=== PATIENT | female | born 1985 | race Caucasian/White ===

== ENCOUNTER 2016-07-21 10:02 | Emergency (ER) | payer MEDICAID ==
[2016-07-21] MEDS ORDERED: Nalbuphine 10 MG/1 ML Vial IVPUSH ONE (10:49)
[2016-07-21] MEDS ORDERED: diphenhydrAMINE 50 MG/ML SDV IVPUSH PRN (10:49)
[2016-07-21] MEDS ORDERED: Prochlorperazine 10 MG/2 ML SDV IVPUSH ONE (10:49)
--- NOTE | 2016-07-21 10:56 | EDM.PDOC ---
ED HPI Behavioral Health - General Chief Complaint: Behavioral/Psych Stated Complaint: MENTAL EVEL Time Seen by Provider: 07/21/16 10:40 Source: Reports: Patient, Old records, RN notes reviewed Exam Limitations: Reports: No limitations - History of Present Illness INITIAL COMMENTS - FREE TEXT/NARRATIVE: 30-year-old female presents emergency Department via law enforcement, she states she's been having suicidal thoughts she does have a plan in which she would take a bunch of pills she has been more depressed over the last several days recently had a medication change where Paxil was added to her current regimen since been on this medication for about a week. She also complains of headache she does have a history of migraines this feels slightly different she has taken combination of ibuprofen and Tylenol without significant relief she denies any nausea vomiting phonophobia or photophobia it is not the worst headache of her life - Related Data Allergies Allergy/AdvReac Type Severity Reaction Status Date / Time latex Allergy Hives Verified 05/13/16 20:35 Sulfa (Sulfonamide Allergy Hives Verified 05/13/16 20:35 Antibiotics) amitriptyline AdvReac Disorientat Verified 05/13/16 20:35 ion ketorolac [From Toradol] AdvReac Nausea Verified 05/13/16 20:35 Home Medications: Home Meds Levothyroxine 175 mcg PO DAILY 02/05/13 [History] Venlafaxine [Effexor] 75 mg PO DAILY 08/27/14 [History] Albuterol Sulfate [Proair Hfa] 1 - 2 puff IH ASDIRECTED PRN 03/31/15 [History] hydrOXYzine HCl [hydrOXYzine] 25 mg PO BID PRN 07/10/15 [History] Gabapentin [Gabapentin] 600 mg PO TID 12/23/15 [History] tiZANidine HCl [Tizanidine HCl] 2 mg PO Q8H PRN 12/23/15 [History] ARIPiprazole [Abilify] 15 mg PO DAILY 01/03/16 [History] Ibuprofen 600 mg PO TID 01/03/16 [History] Omeprazole 20 mg PO ACBREAKFAST 01/03/16 [History] Prazosin [Minpress] 2 mg PO BEDTIME 01/03/16 [History] Meloxicam [Meloxicam] 15 mg PO DAILY 02/28/16 [History] busPIRone [Buspar] 10 mg PO BID 05/13/16 [History] FLUoxetine [PROzac] 10 mg PO DAILY 07/21/16 [History] Headache Pain Score (Numeric/FACES): 8 Past Medical History HEENT History: Reports: Impaired vision Cardiovascular History: Reports: Other (see below) Other Cardiovascular History: heart palpitation Respiratory History: Reports: Asthma, Other (see below) Other Respiratory History: exercise induced asthma Gastrointestinal History: Reports: Gastritis Genitourinary History: Reports: Other (see below) Other Genitourinary History: cervical dysplagia STILL CLEANER History: Reports: , Other (see below) Other OB/BYN History: cervical dysplagia Musculoskeletal History: Reports: Back pain, chronic, Fracture, Osteoarthritis, Other (see below) Other Musculoskeletal History: collarbone and fracture lower back in past EDS Neurological History: Reports: Concussion Psychiatric History: Reports: Anxiety, Bipolar, Depression, Mood swings, Psych Hospitalization(s), Suicide attempt, Suicidal ideation Other Psychiatric History: last psych hospital last week. Endocrine/Metabolic History: Reports: Hypothyroidism Hematologic History: Reports: Anemia, B12 deficiency, Blood transfusion(s), Iron deficiency - Infectious Disease History Infectious Disease History: Reports: Chicken pox - Past Surgical History GI Surgical History: Reports: Appendectomy Female Surgical History: Reports: Tubal ligation, Other (see below) Other Female Surgeries/Procedures: painful irregular menses Social & Family History - Tobacco Use Smoking Status *Q: Current Every Day Smoker Years of Tobacco use: 7 Packs/Tins Daily: 0.5 Used Tobacco, but Quit: No Month Tobacco Last Used: december Second Hand Smoke Exposure: Yes - Caffeine Use Caffeine Use: Reports: Coffee - Alcohol Use Days Per Week of Alcohol Use: 0 Number of Drinks Per Day: 5 Total Drinks Per Week: 0 - Recreational Drug Use Recreational Drug Use: No Drug Use in Last 12 Months: Yes Recreational Drug Type: Reports: Marijuana/Hashish, Vicodin Recreational Drug Use Frequency: Rarely ED ROS GENERAL - Review of Systems Review Of Systems: See Below Constitutional: Reports: no symptoms HEENT: Reports: No symptoms Respiratory: Reports: no symptoms Cardiovascular: Reports: No symptoms GI/Abdominal: Reports: No symptoms : Reports: no symptoms Musculoskeletal: Reports: no symptoms Skin: Reports: no symptoms Neurological: Reports: headache Psychiatric: Reports: Suicidal ideation ED EXAM, BEHAVIORAL HEALTH - Physical Exam Exam: See Below Exam Limited By: No limitations General Appearance: alert, WD/WN, no apparent distress Eye Exam: bilateral eye: EOMI, normal fundi, normal inspection Respiratory/Chest: no respiratory distress, lungs clear, normal breath sounds, no accessory muscle use Cardiovascular: regular rate, rhythm, no murmur GI/Abdominal: soft, non tender Psychiatric: alert, depressed mood, flat affect, suicidal plan, suicidal thoughts. No: uncooperative COURSE, BEHAVIORAL HEALTH COMP - Course Vital Signs: Last Vital Signs Temp 98.6 F 07/21/16 10:27 Pulse 80 07/21/16 10:27 Resp 16 07/21/16 10:27 BP 111/75 07/21/16 10:27 Pulse Ox 98 07/21/16 10:27 Orders, Labs, Meds: Active Orders 24 hr Category Date Time Status Peripheral IV Care [RC] . DIRECTED Care 07/21/16 11:04 Active Sodium Chloride 0.9% [Normal Saline] 1,000 ml Med 07/21/16 11:15 Active IV ASDIRECTED Sodium Chloride 0.9% [Saline Flush] Med 07/21/16 11:03 Active 10 ml FLUSH ASDIRECTED PRN diphenhydrAMINE [Benadryl] Med 07/21/16 10:49 Active 25 mg IVPUSH BEDTIME PRN Peripheral IV Insertion Adult [OM.PC] Urgent Oth 07/21/16 11:03 Ordered Medication Orders Diphenhydramine HCl (Benadryl) 25 mg IVPUSH BEDTIME PRN PRN Reason: Headache Last Admin: 07/21/16 11:20 Dose: 25 mg Sodium Chloride (Normal Saline) 1,000 mls @ 999 mls/hr IV ASDIRECTED CATALINO Last Admin: 07/21/16 11:20 Dose: 999 mls/hr Sodium Chloride (Saline Flush) 10 ml FLUSH ASDIRECTED PRN PRN Reason: Keep Vein Open Last Admin: 07/21/16 11:21 Dose: 10 ml Laboratory Tests 07/21/16 07/21/16 07/21/16 Range/Units 11:00 11:00 11:48 WBC 5.3 (4.5-11.0) K/uL RBC 4.00 (3.30-5.50) M/uL Hgb 11.5 L (12.0-15.0) g/dL Hct 36.1 (36.0-48.0) % MCV 90 (80-98) fL MCH 29 (27-31) pg MCHC 32 (32-36) % Plt Count 271 (150-400) K/uL Neut % (Auto) 44 (36-66) % Lymph % (Auto) 45 H (24-44) % Butts % (Auto) 10 H (2-6) % Eos % (Auto) 1 L (2-4) % Baso % (Auto) 1 (0-1) % Sodium 139 L (140-148) mmol/L Potassium 4.1 (3.6-5.2) mmol/L Chloride 104 (100-108) mmol/L Carbon Dioxide 25 (21-32) mmol/L Anion Gap 14.1 H (5.0-14.0) mmol/L BUN 11 (7-18) mg/dL Creatinine 0.9 (0.6-1.0) mg/dL Est Cr Clr Drug Dosing 70.30 mL/min Estimated GFR (MDRD) > 60 (>60) Glucose 91 (74-106) mg/dL Calcium 8.7 (8.5-10.1) mg/dL Total Bilirubin 0.3 D (0.2-1.0) mg/dL AST 14 L (15-37) U/L ALT 22 (12-78) U/L Alkaline Phosphatase 59 (46-116) U/L Total Protein 7.5 (6.4-8.2) g/dL Albumin 4.0 (3.4-5.0) g/dL Globulin 3.5 (2.3-3.5) g/dL Albumin/Globulin Ratio 1.1 L (1.2-2.2) Urine Color Urine Appearance Urine pH (4.5-8.0) Ur Specific Egnar (1.008-1.030) Urine Protein (NEGATIVE) mg/dL Urine Glucose (UA) (NEGATIVE) mg/dL Urine Ketones (NEGATIVE) mg/dL Urine Occult Blood (NEGATIVE) Urine Nitrite (NEGATIVE) Urine Bilirubin (NEGATIVE) Urine Urobilinogen (NORMAL) mg/dL Ur Leukocyte Esterase (NEGATIVE) Urine RBC (0-5) Urine WBC (0-5) Ur Epithelial Cells Amorphous Sediment Urine Bacteria Urine Mucus Urine Opiates Screen Positive H (NEGATIVE) Ur Oxycodone Screen Negative (NEGATIVE) Urine Methadone Screen Negative (NEGATIVE) Ur Propoxyphene Screen Negative (NEGATIVE) Ur Barbiturates Screen Negative (NEGATIVE) Ur Tricyclics Screen Negative (NEGATIVE) Ur Phencyclidine Scrn Negative (NEGATIVE) Ur Amphetamine Screen Negative (NEGATIVE) U Methamphetamines Scrn Negative (NEGATIVE) Urine MDMA Screen Negative (NEGATIVE) U Benzodiazepines Scrn Negative (NEGATIVE) U Cocaine Metab Screen Negative (NEGATIVE) U Marijuana (THC) Screen Negative (NEGATIVE) 07/21/16 Range/Units 11:48 WBC (4.5-11.0) K/uL RBC (3.30-5.50) M/uL Hgb (12.0-15.0) g/dL Hct (36.0-48.0) % MCV (80-98) fL MCH (27-31) pg MCHC (32-36) % Plt Count (150-400) K/uL Neut % (Auto) (36-66) % Lymph % (Auto) (24-44) % Butts % (Auto) (2-6) % Eos % (Auto) (2-4) % Baso % (Auto) (0-1) % Sodium (140-148) mmol/L Potassium (3.6-5.2) mmol/L Chloride (100-108) mmol/L Carbon Dioxide (21-32) mmol/L Anion Gap (5.0-14.0) mmol/L BUN (7-18) mg/dL Creatinine (0.6-1.0) mg/dL Est Cr Clr Drug Dosing mL/min Estimated GFR (MDRD) (>60) Glucose (74-106) mg/dL Calcium (8.5-10.1) mg/dL Total Bilirubin (0.2-1.0) mg/dL AST (15-37) U/L ALT (12-78) U/L Alkaline Phosphatase (46-116) U/L Total Protein (6.4-8.2) g/dL Albumin (3.4-5.0) g/dL Globulin (2.3-3.5) g/dL Albumin/Globulin Ratio (1.2-2.2) Urine Color Yellow Urine Appearance Slightly cloudy Urine pH 6.0 (4.5-8.0) Ur Specific Egnar 1.020 (1.008-1.030) Urine Protein Negative (NEGATIVE) mg/dL Urine Glucose (UA) Normal (NEGATIVE) mg/dL Urine Ketones Negative (NEGATIVE) mg/dL Urine Occult Blood Negative (NEGATIVE) Urine Nitrite Negative (NEGATIVE) Urine Bilirubin Negative (NEGATIVE) Urine Urobilinogen Normal (NORMAL) mg/dL Ur Leukocyte Esterase Negative (NEGATIVE) Urine RBC 0-5 (0-5) Urine WBC Not seen (0-5) Ur Epithelial Cells Moderate Amorphous Sediment Not seen Urine Bacteria Moderate Urine Mucus Moderate Urine Opiates Screen (NEGATIVE) Ur Oxycodone Screen (NEGATIVE) Urine Methadone Screen (NEGATIVE) Ur Propoxyphene Screen (NEGATIVE) Ur Barbiturates Screen (NEGATIVE) Ur Tricyclics Screen (NEGATIVE) Ur Phencyclidine Scrn (NEGATIVE) Ur Amphetamine Screen (NEGATIVE) U Methamphetamines Scrn (NEGATIVE) Urine MDMA Screen (NEGATIVE) U Benzodiazepines Scrn (NEGATIVE) U Cocaine Metab Screen (NEGATIVE) U Marijuana (THC) Screen (NEGATIVE) Medications Generic Name Dose Route Start Last Admin Trade Name Freq PRN Reason Stop Dose Admin Diphenhydramine HCl 25 mg 07/21/16 10:49 07/21/16 11:20 Benadryl IVPUSH 25 mg BEDTIME PRN Administration Headache Sodium Chloride 1,000 mls @ 999 mls/hr 07/21/16 11:15 07/21/16 11:20 Normal Saline IV 999 mls/hr ASDIRECTED CATALINO Administration Sodium Chloride 10 ml 07/21/16 11:03 07/21/16 11:21 Saline Flush FLUSH 10 ml ASDIRECTED PRN Administration Keep Vein Open Discontinued Medications Generic Name Dose Route Start Last Admin Trade Name Freq PRN Reason Stop Dose Admin Dexamethasone 4 mg 07/21/16 13:10 07/21/16 13:42 Dexamethasone IVPUSH 07/21/16 13:11 4 mg ONETIME ONE Administration Haloperidol Lactate 5 mg 07/21/16 13:10 07/21/16 13:42 Haldol IVPUSH 07/21/16 13:11 5 mg ONETIME ONE Administration Nalbuphine HCl 5 mg 07/21/16 10:49 07/21/16 11:20 Nubain IVPUSH 07/21/16 10:50 5 mg ONETIME ONE Administration Nicotine 14 mg 07/21/16 14:11 07/21/16 14:41 Habitrol TRDERM 07/21/16 14:12 14 mg ONETIME ONE Administration Prochlorperazine Edisylate 5 mg 07/21/16 10:49 07/21/16 11:20 Compazine IVPUSH 07/21/16 10:50 5 mg ONETIME ONE Administration Departure - Departure Time of Disposition: 15:33 Disposition: DC/Tfer to Psych Hosp/Unit [facility] Condition: fair Clinical Impression: Suicidal ideations Forms: ED Department Discharge - My Orders Last 24 Hours: My Active Orders 07/21/16 10:49 diphenhydrAMINE [Benadryl] 25 mg IVPUSH BEDTIME PRN 07/21/16 11:03 Sodium Chloride 0.9% [Saline Flush] 10 ml FLUSH ASDIRECTED PRN Peripheral IV Insertion Adult [OM.PC] Urgent 07/21/16 11:04 Peripheral IV Care [RC] . DIRECTED 07/21/16 11:15 Sodium Chloride 0.9% [Normal Saline] 1,000 ml IV ASDIRECTED - Assessment/Plan Last 24 Hours: My Active Orders 07/21/16 10:49 diphenhydrAMINE [Benadryl] 25 mg IVPUSH BEDTIME PRN 07/21/16 11:03 Sodium Chloride 0.9% [Saline Flush] 10 ml FLUSH ASDIRECTED PRN Peripheral IV Insertion Adult [OM.PC] Urgent 07/21/16 11:04 Peripheral IV Care [RC] . DIRECTED 07/21/16 11:15 Sodium Chloride 0.9% [Normal Saline] 1,000 ml IV ASDIRECTED Plan: Assessment Acuity = acute Site and laterality = [suicidal ideationconsultation a patient with known history of migraine Etiology = probably related to depression or medication change Manifestations = none Location of injury = home Lab values = CBC demonstrates a hemoglobin 11.5 consistent normochromic anemia sodium load 139 consistent hyponatremia urinalysis unremarkable urine drug screen positive for opiates probably related to recent opiates provided in the emergency department Plan she had good resolution of the migraine type headache with combination of Nubain , Compazine, Haldol and dexamethasone, she has had acceptance to the [facility] in [place], [place] for her treatment of her suicidal ideation she will be transferred via private vehicle with her significant other both parties are in agreement Patient was in agreement with the plan all questions were answered, This note was dictated using [employer] voice recognition software please call with any questions.
[2016-07-21] MEDS ORDERED: Sodium Chloride 0.9% 10 ML Syringe FLUSH PRN (11:03)
[2016-07-21] MEDS ORDERED: Sodium Chloride 0.9% 1,000 ML IV SCH (11:15)
[2016-07-21] MEDS ORDERED: Haloperidol Lactate 5 MG/ML SDV IVPUSH ONE (13:10)
[2016-07-21] MEDS ORDERED: Dexamethasone 4 MG/ML SDV IVPUSH ONE (13:10)
[2016-07-21] MEDS ORDERED: Nicotine 14 MG/24 Hr Patch TRDERM ONE (14:11)
[2016-07-21 15:52] VITALS: BP 99/64
== END 2016-07-21 15:51 ==
LOC: JP.ED 10:02
DX: R45.851 Suicidal ideations (principal); Z91.040 Latex allergy status; Z88.2 Allergy status to sulfonamides; Z88.8 Allergy status to other drugs, medicaments and biological substances; Z79.899 Other long term (current) drug therapy
CPT/HCPCS: 36415; 80053; 80305; 81001; 85025; 96361; 96374; 96375; 99285; A9270; J0780; J1100; J1200; J1630; J2300; J7040; J7050

== ENCOUNTER 2016-08-13 18:06 | Emergency (ER) | payer MEDICAID ==
--- NOTE | 2016-08-13 18:48 | EDM.PDOC ---
[id number] 4d RUQ PAIN Time Seen by Provider: 08/13/16 18:45 Source: Reports: Patient, Old records, RN notes reviewed History Limitations: Reports: No limitations - History of Present Illness INITIAL COMMENTS - FREE TEXT/NARRATIVE: Please note this is a second dictation, required do to computer failure, details may be lost Brought in by veena Chief complaint Right-sided abdominal pain HPI 30-year-old female, sudden onset right upper quadrant pain and a half hours ago , radiation through the mid back, some nausea and some feeling of "acid stomach ". No bloating No diarrhea. Last bowel movement earlier today was loose which is normal for her. No urinary symptoms No history of similar pain previously. Last ate shortly after noon, 2 fish sandwiches, fast food restaurant. Veena had [employer]. History of appendectomy and tubal ligation. Positive family history for gallstones in her father and paternal grandmother Recently hospitalized for depression, discharge 2 weeks ago. History of bipolar disorder, anxiety, B12 deficiency She also gets frequent reflux and indigestion No comfortable position although she feels better curled up more hunched over, difficult to walk because of the pain. - Related Data Allergies/ADRs: Allergies Allergy/AdvReac Type Severity Reaction Status Date / Time latex Allergy Hives Verified 05/13/16 20:35 Sulfa (Sulfonamide Allergy Hives Verified 05/13/16 20:35 Antibiotics) amitriptyline AdvReac Disorientat Verified 05/13/16 20:35 ion ketorolac [From Toradol] AdvReac Nausea Verified 05/13/16 20:35 Home Meds: Home Meds Levothyroxine 175 mcg PO DAILY 02/05/13 [History] Venlafaxine [Effexor] 75 mg PO DAILY 08/27/14 [History] Albuterol Sulfate [Proair Hfa] 1 - 2 puff IH ASDIRECTED PRN 03/31/15 [History] hydrOXYzine HCl [hydrOXYzine] 25 mg PO BID PRN 07/10/15 [History] Gabapentin [Gabapentin] 600 mg PO TID 12/23/15 [History] tiZANidine HCl [Tizanidine HCl] 2 mg PO Q8H PRN 12/23/15 [History] ARIPiprazole [Abilify] 15 mg PO DAILY 01/03/16 [History] Ibuprofen 600 mg PO TID 01/03/16 [History] Omeprazole 20 mg PO ACBREAKFAST 01/03/16 [History] Prazosin [Minpress] 2 mg PO BEDTIME 01/03/16 [History] Meloxicam [Meloxicam] 15 mg PO DAILY 02/28/16 [History] busPIRone [Buspar] 10 mg PO BID 05/13/16 [History] FLUoxetine [PROzac] 10 mg PO DAILY 07/21/16 [History] Acetaminophen/oxyCODONE [Percocet 325-5 MG] 1 - 2 tab PO Q4H PRN #10 tab [Rx] Ondansetron [Ondansetron Odt] 4 mg PO Q8H PRN #5 tab.rapdis 08/13/16 [Rx] Past Medical History HEENT History: Reports: Impaired vision Cardiovascular History: Reports: Other (see below) Other Cardiovascular History: heart palpitation Respiratory History: Reports: Asthma, Other (see below) Other Respiratory History: exercise induced asthma Gastrointestinal History: Reports: Gastritis Genitourinary History: Reports: Other (see below) Other Genitourinary History: cervical dysplagia 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 Endocrine/Metabolic History: Reports: Hypothyroidism Hematologic History: Reports: Anemia, B12 deficiency, Blood transfusion(s), Iron deficiency - Infectious Disease History Infectious Disease History: Reports: Chicken pox - Past Surgical History GI Surgical History: Reports: Appendectomy Female Surgical History: Reports: Tubal ligation, Other (see below) Other Female Surgeries/Procedures: painful irregular menses Social & Family History - Tobacco Use Smoking Status *Q: Current Every Day Smoker Years of Tobacco use: 7 Packs/Tins Daily: 0.5 Used Tobacco, but Quit: No Month Tobacco Last Used: december Second Hand Smoke Exposure: Yes - Caffeine Use Caffeine Use: Reports: Coffee - Alcohol Use Days Per Week of Alcohol Use: 0 Number of Drinks Per Day: 5 Total Drinks Per Week: 0 - Recreational Drug Use Recreational Drug Use: No Drug Use in Last 12 Months: Yes Recreational Drug Type: Reports: Marijuana/Hashish, Vicodin Recreational Drug Use Frequency: Rarely ED ROS GENERAL - Review of Systems Review Of Systems: See Below Constitutional: Reports: no symptoms HEENT: Reports: No symptoms Respiratory: Reports: No Symptoms Cardiovascular: Reports: No symptoms GI/Abdominal: Reports: Abdominal pain, Nausea. Denies: Constipation, Diarrhea, Vomiting : Reports: no symptoms Musculoskeletal: Reports: no symptoms Skin: Reports: no symptoms Neurological: Reports: No Symptoms Psychiatric: Reports: No symptoms Hematologic/Lymphatic: Reports: no symptoms Immunologic: Reports: no symptoms ED EXAM, GI/ABD - Physical Exam Exam: See Below Exam Limited By: No limitations General Appearance: alert, moderate distress, other (Vital signs normal, very uncomfortable, curled up on her side on the stretcher) Eyes: bilateral: normal appearance Ears: normal external exam Nose: normal inspection, normal mucosa Throat/Mouth: Normal inspection, Normal oropharynx, Normal voice Head: atraumatic, normocephalic Neck: normal inspection Respiratory/Chest: no respiratory distress, normal breath sounds Cardiovascular: normal peripheral pulses, regular rate, rhythm GI/Abdominal: normal bowel sounds, soft, no distention, tenderness (Right upper quadrant), guarding (Right upper quadrant), Leos's sign Extremities: normal inspection, normal range of motion, non-tender, no pedal edema Neurological: alert, oriented, no motor/sensory deficits Psychiatric: normal affect, normal mood Skin Exam: Warm, Dry, Intact, Normal color, No rash Lymphatic: no adenopathy Course - Vital Signs Last Recorded V/S: Last Vital Signs Temp 35.7 C 08/13/16 20:36 Pulse 73 08/13/16 20:36 Resp 16 08/13/16 20:36 BP 113/79 08/13/16 20:36 Pulse Ox 97 08/13/16 20:36 - Orders/Labs/Meds Orders: Active Orders 24 hr Category Date Time Status CULTURE URINE [RM] Stat Lab 08/13/16 19:46 Received Saline Lock Insert [OM.PC] Stat Oth 08/13/16 18:55 Ordered Labs: Laboratory Tests 08/13/16 08/13/16 08/13/16 Range/Units 18:55 18:55 18:55 WBC 10.5 (4.5-11.0) K/uL RBC 4.29 (3.30-5.50) M/uL Hgb 12.5 (12.0-15.0) g/dL Hct 38.5 (36.0-48.0) % MCV 90 (80-98) fL MCH 29 (27-31) pg MCHC 33 (32-36) % Plt Count 289 (150-400) K/uL Sodium 142 (140-148) mmol/L Potassium 4.1 (3.6-5.2) mmol/L Chloride 107 (100-108) mmol/L Carbon Dioxide 27 (21-32) mmol/L Anion Gap 8.5 (5.0-14.0) mmol/L BUN 14 (7-18) mg/dL Creatinine 1.0 (0.6-1.0) mg/dL Est Cr Clr Drug Dosing TNP Estimated GFR (MDRD) > 60 (>60) Glucose 95 (74-106) mg/dL Lactic Acid 1.6 (0.4-2.0) mmol/L Calcium 8.5 (8.5-10.1) mg/dL Total Bilirubin 0.3 (0.2-1.0) mg/dL AST 16 (15-37) U/L ALT 17 (12-78) U/L Alkaline Phosphatase 105 D (46-116) U/L Total Protein 7.7 (6.4-8.2) g/dL Albumin 3.8 (3.4-5.0) g/dL Globulin 3.9 H (2.3-3.5) g/dL Albumin/Globulin Ratio 1.0 L (1.2-2.2) Urine Color Urine Appearance Urine pH (4.5-8.0) Ur Specific [place] (1.008-1.030) Urine Protein (NEGATIVE) mg/dL Urine Glucose (UA) (NEGATIVE) mg/dL Urine Ketones (NEGATIVE) mg/dL Urine Occult Blood (NEGATIVE) Urine Nitrite (NEGATIVE) Urine Bilirubin (NEGATIVE) Urine Urobilinogen (NORMAL) mg/dL Ur Leukocyte Esterase (NEGATIVE) Urine RBC (0-5) Urine WBC (0-5) Ur Epithelial Cells Amorphous Sediment Urine Bacteria Urine Mucus 08/13/16 Range/Units 19:29 WBC (4.5-11.0) K/uL RBC (3.30-5.50) M/uL Hgb (12.0-15.0) g/dL Hct (36.0-48.0) % MCV (80-98) fL MCH (27-31) pg MCHC (32-36) % Plt Count (150-400) K/uL Sodium (140-148) mmol/L Potassium (3.6-5.2) mmol/L Chloride (100-108) mmol/L Carbon Dioxide (21-32) mmol/L Anion Gap (5.0-14.0) mmol/L BUN (7-18) mg/dL Creatinine (0.6-1.0) mg/dL Est Cr Clr Drug Dosing Estimated GFR (MDRD) (>60) Glucose (74-106) mg/dL Lactic Acid (0.4-2.0) mmol/L Calcium (8.5-10.1) mg/dL Total Bilirubin (0.2-1.0) mg/dL AST (15-37) U/L ALT (12-78) U/L Alkaline Phosphatase (46-116) U/L Total Protein (6.4-8.2) g/dL Albumin (3.4-5.0) g/dL Globulin (2.3-3.5) g/dL Albumin/Globulin Ratio (1.2-2.2) Urine Color Yellow Urine Appearance Slightly cloudy Urine pH 6.0 (4.5-8.0) Ur Specific [place] 1.025 (1.008-1.030) Urine Protein Negative (NEGATIVE) mg/dL Urine Glucose (UA) Normal (NEGATIVE) mg/dL Urine Ketones Negative (NEGATIVE) mg/dL Urine Occult Blood Negative (NEGATIVE) Urine Nitrite Negative (NEGATIVE) Urine Bilirubin Small (NEGATIVE) Urine Urobilinogen 1 (NORMAL) mg/dL Ur Leukocyte Esterase Moderate (NEGATIVE) Urine RBC 0-5 (0-5) Urine WBC 20-30 H (0-5) Ur Epithelial Cells Many Amorphous Sediment Not seen Urine Bacteria Many Urine Mucus Few Meds: Medications Discontinued Medications Generic Name Dose Route Start Last Admin Trade Name Freq PRN Reason Stop Dose Admin Fentanyl 100 mcg 08/13/16 18:56 08/13/16 19:06 Sublimaze IVPUSH 08/13/16 18:57 100 mcg ONETIME ONE Administration Hydromorphone HCl 0.5 mg 08/13/16 20:28 08/13/16 20:33 Dilaudid IVPUSH 08/13/16 20:29 0.5 mg ONETIME ONE Administration Ondansetron HCl 4 mg 08/13/16 19:50 08/13/16 20:10 Zofran IVPUSH 08/13/16 19:51 4 mg ONETIME ONE Administration Prochlorperazine Edisylate 5 mg 08/13/16 20:28 08/13/16 20:33 Compazine IVPUSH 08/13/16 20:29 5 mg ONETIME ONE Administration Sodium Chloride 10 ml 08/13/16 18:55 08/13/16 20:34 Saline Flush FLUSH 10 ml ASDIRECTED PRN Administration Keep Vein Open - Re-Assessments/Exams Free Text/Narrative Re-Assessment/Exam: 08/13/16 19:07 30-year-old female with sudden onset right upper quadrant abdominal pain with radiation to the back, associated with nausea. Very tender on examination Differential diagnosis includes biliary colic, pancreatitis, renal colic, gastritis, among others Saline lock, fentanyl 100 mcg IV for pain, she is intolerant of ketorolac Labs ordered 08/13/16 19:44 CBC electrolytes BUN creatinine and hepatic profile are normal as is lactic acid Urinalysis does show pyuria and bacteria, negative nitrite Urine culture pending 08/13/16 20:29 Pain improved but she reported nausea and so had been given ondansetron with improvement in nausea Reexamined at this time, still significantly tender although nausea has improved Hydromorphone 0.5 mg and Compazine 5 mg IV ordered discharge home on oral analgesics and followup with primary care 08/13/16 22:05 Departure - Departure Time of Disposition: 21:20 Disposition: Home, Self-Care 01 Condition: good Clinical Impression: Right upper quadrant abdominal pain Prescriptions: Acetaminophen/oxyCODONE [Percocet 325-5 MG] 1 - 2 tab PO Q4H PRN #10 tab PRN Reason: Moderate to severe pain Ondansetron [Ondansetron Odt] 4 mg PO Q8H PRN #5 tab.rapdis PRN Reason: Nausea or vomiting Instructions: Abdominal Pain, Adult, [id number], Cholelithiasis, [id number] , Low-Fat Diet for Pancreatitis or Gallbladder Conditions Referrals: Adelina Canales NP [Primary Care Provider] - Forms: ED Department Discharge Additional Instructions: The cause of your pain is not known at this time, but there is a possibility that this is due to a gallbladder problem. Avoid large meals, fatty meals or greasy foods Make an appointment with your Dr. within the next week to get rechecked and to determine if further testing such as an ultrasound is needed Return to emergency if fever, repeated vomiting, or jaundice/turning yellow, or severe pain you cannot manage Urine testing showed white cells and bacteria in your urine, culture is pending Get rechecked if you have pain with urination - My Orders Last 24 Hours: My Active Orders 08/13/16 18:55 Saline Lock Insert [OM.PC] Stat 08/13/16 19:46 CULTURE URINE [RM] Stat - Assessment/Plan Last 24 Hours: My Active Orders 08/13/16 18:55 Saline Lock Insert [OM.PC] Stat 08/13/16 19:46 CULTURE URINE [RM] Stat
[2016-08-13] MEDS ORDERED: fentaNYL 100 MCG/2 ML SDV IVPUSH ONE (18:56)
[2016-08-13] MEDS: Sodium Chloride 0.9% 10 ML Syringe FLUSH PRN ×3 (19:07→20:34)
[2016-08-13] MEDS ORDERED: Ondansetron 4 MG/2 ML SDV IVPUSH ONE (19:50)
[2016-08-13] MEDS ORDERED: Prochlorperazine 10 MG/2 ML SDV IVPUSH ONE (20:28)
[2016-08-13] MEDS ORDERED: HYDROmorphone 0.5 MG/0.5 ML Syringe IVPUSH ONE (20:28)
[2016-08-13 20:37] VITALS: BP 113/79
== END 2016-08-13 21:42 | disposition home or self-care (01) ==
LOC: JP.ED 18:06
DX: R10.11 Right upper quadrant pain (principal); J45.909 Unspecified asthma, uncomplicated; F41.9 Anxiety disorder, unspecified; F31.9 Bipolar disorder, unspecified; F32.9 Major depressive disorder, single episode, unspecified; E03.9 Hypothyroidism, unspecified; F17.210 Nicotine dependence, cigarettes, uncomplicated; Z90.49 Acquired absence of other specified parts of digestive tract; Z98.51 Tubal ligation status; Z79.899 Other long term (current) drug therapy; Z88.2 Allergy status to sulfonamides; Z88.8 Allergy status to other drugs, medicaments and biological substances; Z91.040 Latex allergy status
CPT/HCPCS: 36415; 80053; 81001; 83605; 85027; 87086; 96374; 96375; 99284; J0780; J1170; J2405; J3010; J7050

== ENCOUNTER 2016-10-07 05:57 | Day surgery (SDC) | payer MEDICAID ==
[2016-10-07] MEDS ORDERED: Sodium Chloride 0.9% 1,000 ML IV SCH ×2 (06:30→08:00)
[2016-10-07] MEDS ORDERED: Lidocaine 1% with EPINEPHrine 1:100,000 50 ML MDV ONE (06:47)
[2016-10-07] MEDS ORDERED: Povidone-Iodine 10% Soln 118.25 ML Bottle ONE (07:02)
[2016-10-07] MEDS ORDERED: Ondansetron 4 MG/2 ML SDV ONE (07:11)
[2016-10-07] MEDS ORDERED: Neostigmine Methylsulfate 1 MG/ML 5 ML Syringe ONE (07:11)
[2016-10-07] MEDS ORDERED: Dexamethasone 4 MG/ML SDV ONE (07:11)
[2016-10-07] MEDS ORDERED: Succinylcholine/Normal Saline 200 MG/10 ML Syringe ONE (07:11)
[2016-10-07] MEDS ORDERED: Rocuronium 50 MG/5 ML Vial ONE (07:11)
[2016-10-07] MEDS ORDERED: Propofol 200 MG/20 ML SDV ONE (07:11)
[2016-10-07] MEDS ORDERED: fentaNYL 250 MCG/5 ML SDV ONE (07:12)
[2016-10-07] MEDS ORDERED: ceFAZolin 2 GM in Premix Bag 1 BAG IV ONE (07:30)
[2016-10-07] MEDS ORDERED: metroNIDAZOLE/Normal Saline 500 MG in Premix Bag 1 BAG IV ONE (07:30)
[2016-10-07] MEDS ORDERED: Docusate Sodium 100 MG Cap PO PRN (07:58)
[2016-10-07] MEDS ORDERED: diphenhydrAMINE 50 MG/ML SDV IVPUSH PRN (07:58)
[2016-10-07] MEDS ORDERED: Promethazine 25 MG/ML SDV IM PRN (07:58)
[2016-10-07] MEDS ORDERED: Zolpidem 5 MG Tab PO PRN (07:58)
[2016-10-07] MEDS ORDERED: Metoclopramide 10 MG/2 ML SDV IV PRN (07:58)
[2016-10-07] MEDS ORDERED: Benzocaine/Cetylpyridinium/Menthol Lozenge MUCMEM PRN (07:58)
[2016-10-07] MEDS ORDERED: Acetaminophen/oxyCODONE 325-10 MG Tab PO PRN (07:58)
[2016-10-07] MEDS ORDERED: Bisacodyl 5 MG Tab PO PRN (07:58)
[2016-10-07] MEDS ORDERED: Morphine 2 MG/ML Syringe IVPUSH PRN (08:47)
[2016-10-07] MEDS ORDERED: fentaNYL 100 MCG/2 ML SDV IVPUSH ONE (08:57)
--- NOTE | 2016-10-07 13:36 | OR ---
DATE OF PROCEDURE: 10/07/2016 PROCEDURE: Laparoscopic cholecystectomy. PREOPERATIVE DIAGNOSIS: Cholecystitis/biliary dyskinesia. POSTOPERATIVE DIAGNOSIS: Cholecystitis/biliary dyskinesia. COMPLICATIONS: None. 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 ANESTHESIA: General/local. RISK: Risks, benefits, alternatives, and limitations, including, but not limited to infection, bleeding, and injury to cystic duct, common bile duct leaks, bowel injury, possibility of open surgery were explained to the patient, and she wished to proceed. PROCEDURE IN DETAIL: The patient was placed in supine position. A supraumbilical curvilinear incision was made. A Veress needle was used to enter the abdomen without abnormality. A drop test was performed without abnormality. An Optiview trocar was subsequently followed. Additional 10 mm and two 5 mm ports were also entered under direct visualization. Using blunt dissection, a "clear view" of the gallbladder was obtained with a single nonpulsatile structure in the gallbladder. These were subsequently clipped x3 and transected. The remaining 1/3rd of the gallbladder was removed off the gallbladder bed without difficulty. Minimal bleeding was controlled by electrocautery. The gallbladder was delivered via bag with the upper port. The air was removed after the abdomen was insufflated, any evidence of additional injury which was none. The wounds were closed with 3-0 Vicryl and 4-0 Vicryl interrupted running fashion after being thoroughly irrigated. A local was applied. The patient tolerated the procedure well. Raymon Pal MD /[id number]
[2016-10-07 14:27] VITALS: BP 94/68
== END 2016-10-07 14:40 | disposition home or self-care (01) ==
LOC: JP.SDS 05:57 → JP.MS 09:40 → JP.SDS 14:40
PROVIDERS: ATTEND Surgery
DX: K80.10 Calculus of gallbladder with chronic cholecystitis without obstruction (principal); K83.9 Disease of biliary tract, unspecified; F41.1 Generalized anxiety disorder; F41.0 Panic disorder [episodic paroxysmal anxiety]; F10.10 Alcohol abuse, uncomplicated; E03.9 Hypothyroidism, unspecified; F31.81 Bipolar II disorder; G89.29 Other chronic pain; M54.5 Low back pain; F17.210 Nicotine dependence, cigarettes, uncomplicated; K21.9 Gastro-esophageal reflux disease without esophagitis; Q79.6 Ehlers-Danlos syndromes; Z98.51 Tubal ligation status; Z90.49 Acquired absence of other specified parts of digestive tract
CPT/HCPCS: 36415; 47562; 80053; 85027; A9270; J0131; J0690; J1100; J2270; J2405; J2704; J2765; J3010; J7040; 88304

== ENCOUNTER 2016-10-24 09:13 | Day surgery (SDC) | payer MEDICAID ==
[2016-10-24] MEDS ORDERED: Sodium Chloride 0.9% 1,000 ML IV SCH (09:30)
[2016-10-24] MEDS ORDERED: Propofol 200 MG/20 ML SDV ONE (11:40)
[2016-10-24] MEDS ORDERED: Midazolam 1 MG/ML 2 ML SDV ONE (11:41)
[2016-10-24] MEDS ORDERED: fentaNYL 100 MCG/2 ML SDV ONE (11:41)
[2016-10-24 13:42] VITALS: BP 101/65
--- NOTE | 2016-10-27 07:47 | OR ---
DATE OF PROCEDURE: 10/24/2016 PROCEDURE: EGD. FINDINGS: Inflammation at GE junction consistent with reflux disease. PREOPERATIVE DIAGNOSIS: Epigastric pain. POSTOPERATIVE DIAGNOSIS: Epigastric pain. COMPLICATIONS: None. 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 RISKS: Risks, benefits, alternatives, and limitations including, but not limited to infection, bleeding, and perforation were explained to the patient, and she wished to proceed. PROCEDURE IN DETAIL: The patient was placed in left lateral decubitus position. The EGD scope was introduced and advanced atraumatically to second part of the duodenum. The scope was brought back into the stomach. No abnormalities in the duodenum. No hiatal hernia. No gastritis. No ulceration. At the GE junction, there was inflammation consistent with reflux disease. This was biopsied x6 using cold biopsy forceps. It was normal. The patient tolerated the procedure well. Raymon Pal MD /[id number]
== END 2016-10-24 12:55 | disposition home or self-care (01) ==
LOC: JP.SDS 09:13
PROVIDERS: ATTEND Surgery
DX: K31.89 Other diseases of stomach and duodenum (principal); F31.9 Bipolar disorder, unspecified; K21.9 Gastro-esophageal reflux disease without esophagitis; Z88.2 Allergy status to sulfonamides; Z91.09 Other allergy status, other than to drugs and biological substances; Z88.8 Allergy status to other drugs, medicaments and biological substances; Z91.040 Latex allergy status; E03.9 Hypothyroidism, unspecified
CPT/HCPCS: 43239; J2250; J2704; J3010; J7040; 88305

== ENCOUNTER 2016-10-29 02:42 | Emergency (ER) | payer MEDICAID ==
[2016-10-29] MEDS ORDERED: Sodium Chloride 0.9% 1,000 ML IV SCH (04:00)
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
[2016-10-29 07:24] VITALS: BP 98/67
== END 2016-10-29 08:54 | disposition home or self-care (01) ==
LOC: JP.ED 02:42
DX: F31.9 Bipolar disorder, unspecified (principal); Z63.9 Problem related to primary support group, unspecified; F41.9 Anxiety disorder, unspecified; K21.9 Gastro-esophageal reflux disease without esophagitis; F17.210 Nicotine dependence, cigarettes, uncomplicated; Z90.49 Acquired absence of other specified parts of digestive tract; Z98.51 Tubal ligation status; J45.909 Unspecified asthma, uncomplicated; Z79.899 Other long term (current) drug therapy; Z91.040 Latex allergy status; Z88.2 Allergy status to sulfonamides; Z91.09 Other allergy status, other than to drugs and biological substances; Z86.2 Personal history of diseases of the blood and blood-forming organs and certain disorders involving the immune mechanism
CPT/HCPCS: 36415; 80053; 80305; 81001; 81025; 84443; 85025; 96360; 96361; 99285; G0480; J7040; 99283

== ENCOUNTER 2017-02-05 13:15 | Emergency (ER) | payer MEDICAID ==
[2017-02-05 13:50] VITALS: BP 125/79
[2017-02-05] MEDS ORDERED: Ketorolac 60 MG/2 ML SDV IM ONE (14:00)
--- NOTE | 2017-02-05 14:54 | EDM.PDOC ---
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 Her primary provider is considering putting her on hormone manipulation to regulate her menstrual cycles. She has a history of a tubal ligation. No fevers or chills, no nausea or vomiting, she has taken ibuprofen and Tylenol and called her friend "crying" she was so uncomfortable so she brought her in. She still looks uncomfortable but is certainly in no distress. Onset: Gradual (Over the past 2 days) Location: Reports: Abdomen (Lower abdomen, pelvis and suprapubic area) Severity: Moderate Associated Symptoms: Reports: No Other Symptoms lower abdomen Pain Score (Numeric/FACES): 8 - Related Data Allergies Allergy/AdvReac Type Severity Reaction Status Date / Time adhesive tape Allergy Rash Verified 02/05/17 13:36 buprenorphine Allergy Nausea Verified 02/05/17 13:36 citric acid Allergy Acid Reflux Verified 02/05/17 13:36 latex Allergy Hives Verified 02/05/17 13:36 Sulfa (Sulfonamide Allergy Hives Verified 02/05/17 13:36 Antibiotics) topiramate [From Topamax] Allergy Nausea Verified 02/05/17 13:36 amitriptyline AdvReac Disorientat Verified 02/05/17 13:36 ion ketorolac [From Toradol] AdvReac Nausea Verified 02/05/17 13:36 Home Meds: Home Meds Levothyroxine 175 mcg PO DAILY 02/05/13 [History] Venlafaxine [Effexor] 75 mg PO BEDTIME 08/27/14 [History] Albuterol Sulfate [Proair Hfa] 1 - 2 puff IH Q4HR PRN 03/31/15 [History] hydrOXYzine HCl [hydrOXYzine] 150 mg PO BEDTIME 07/10/15 [History] Gabapentin [Gabapentin] 900 mg PO TID 12/23/15 [History] tiZANidine HCl [Tizanidine HCl] 2 mg PO Q8H PRN 12/23/15 [History] ARIPiprazole [Abilify] 25 mg PO BEDTIME 01/03/16 [History] Prazosin [Minpress] 2 mg PO BEDTIME 01/03/16 [History] Meloxicam [Meloxicam] 15 mg PO DAILY 02/28/16 [History] busPIRone [Buspar] 30 mg PO BID 05/13/16 [History] Ondansetron [Ondansetron Odt] 4 mg PO Q8H PRN #5 tab.rapdis 08/13/16 [Rx] Calcium Carbonate/Vitamin D3 [Calcium Carb 500 MG] 500 mg PO ASDIRECTED PRN [History] Diclofenac Sodium [Voltaren 1% Gel] 1 film TOP QID 10/02/16 [History] Ranitidine HCl [Ranitidine] 150 mg PO BID PRN 10/02/16 [History] Past Medical History HEENT History: Reports: Impaired Vision Cardiovascular History: Reports: Other (See Below) Other Cardiovascular History: heart palpitation Respiratory History: Reports: Asthma Other Respiratory History: EXERCISE INDUCED ASTHMA Gastrointestinal History: Reports: Gastritis, GERD Genitourinary History: Reports: Other (See Below) Other Genitourinary History: cervical dysplagia 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 Endocrine/Metabolic History: Reports: Hypothyroidism Hematologic History: Reports: Anemia, B12 Deficiency, Blood Transfusion(s), Iron Deficiency Immunologic History: Reports: None Oncologic (Cancer) History: Reports: None Dermatologic History: Reports: None - Infectious Disease History Infectious Disease History: Reports: Chicken Pox - Past Surgical History GI Surgical History: Reports: Appendectomy, Cholecystectomy Female Surgical History: Reports: Tubal Ligation, Other (See Below) Other Female Surgeries/Procedures: cervical biopsy = dysplasia Social & Family History - Family History Family Medical History: Noncontributory - Tobacco Use Smoking Status *Q: Current Every Day Smoker Years of Tobacco use: 7 Packs/Tins Daily: 0.5 Used Tobacco, but Quit: No Month Tobacco Last Used: MAY Second Hand Smoke Exposure: No - Caffeine Use Caffeine Use: Reports: Coffee - Alcohol Use Days Per Week of Alcohol Use: 0 Number of Drinks Per Day: 5 Total Drinks Per Week: 0 - Recreational Drug Use Recreational Drug Use: No Drug Use in Last 12 Months: Yes Recreational Drug Type: Reports: Marijuana/Hashish, Vicodin Recreational Drug Use Frequency: Rarely ED ROS GENERAL - Review of Systems Review Of Systems: See Below Constitutional: Denies: Fever, Chills Respiratory: Denies: Shortness of Breath, Cough Cardiovascular: Denies: Chest Pain GI/Abdominal: Reports: Abdominal Pain. Denies: Nausea, Vomiting : Reports: No Symptoms Skin: Reports: No Symptoms ED EXAM, GI/ABD - Physical Exam Exam: See Below Exam Limited By: No Limitations General Appearance: Alert, No Apparent Distress Eyes: Bilateral: Normal Appearance Respiratory/Chest: No Respiratory Distress, Lungs Clear Cardiovascular: Regular Rate, Rhythm GI/Abdominal Exam: Tender (Reaccessed with some tenderness to palpation in the suprapubic area but no guarding) Course - Vital Signs Last Recorded V/S: Last Vital Signs Temp 98.0 F 02/05/17 13:35 Pulse 100 02/05/17 13:35 Resp 16 02/05/17 13:35 BP 125/79 02/05/17 13:35 Pulse Ox 96 02/05/17 13:35 - Orders/Labs/Meds Labs: Laboratory Tests 02/05/17 02/05/17 Range/Units 14:16 14:16 Urine Color Yellow Urine Appearance Clear Urine pH 5.0 (4.5-8.0) Ur Specific [place] 1.015 (1.008-1.030) Urine Protein Negative (NEGATIVE) mg/dL Urine Glucose (UA) Normal (NEGATIVE) mg/dL Urine Ketones Negative (NEGATIVE) mg/dL Urine Occult Blood Moderate (NEGATIVE) Urine Nitrite Negative (NEGATIVE) Urine Bilirubin Negative (NEGATIVE) Urine Urobilinogen Normal (NORMAL) mg/dL Ur Leukocyte Esterase Negative (NEGATIVE) Urine RBC 0-5 (0-5) Urine WBC 0-5 (0-5) Ur Epithelial Cells Rare Amorphous Sediment Few Urine Bacteria Not seen Urine Mucus Few Urine HCG, Qual Negative Meds: Medications Discontinued Medications Generic Name Dose Route Start Last Admin Trade Name Freq PRN Reason Stop Dose Admin Ketorolac Tromethamine 60 mg 02/05/17 14:00 Toradol IM 02/05/17 14:01 ONETIME ONE - Re-Assessments/Exams Free Text/Narrative Re-Assessment/Exam: 02/05/17 14:53 A UA and urine were obtained and both were negative. I planned on offering some ketorolac IM but she states that she is "allergic". I encouraged her to continue with ibuprofen and Tylenol and discuss her hormone manipulation with her primary provider next week. Departure - Departure Time of Disposition: 15:13 Disposition: Home, Self-Care 01 Condition: Good Clinical Impression: Menstrual cramps - Discharge Information Instructions: Dysmenorrhea, [id number] Referrals: Adelina Canales NP [Primary Care Provider] - Forms: ED Department Discharge Care Plan Goals: Continue on your regular medications, Tylenol and ibuprofen for pain should help. Discuss hormone manipulation with your primary provider as planned.
== END 2017-02-05 15:11 | disposition home or self-care (01) ==
LOC: JP.ED 13:15
DX: N94.6 Dysmenorrhea, unspecified (principal); F17.210 Nicotine dependence, cigarettes, uncomplicated; Z90.49 Acquired absence of other specified parts of digestive tract; Z98.51 Tubal ligation status; J45.909 Unspecified asthma, uncomplicated; F31.9 Bipolar disorder, unspecified; E03.9 Hypothyroidism, unspecified; Z86.2 Personal history of diseases of the blood and blood-forming organs and certain disorders involving the immune mechanism; Z79.899 Other long term (current) drug therapy; Z88.2 Allergy status to sulfonamides; Z91.040 Latex allergy status; Z88.8 Allergy status to other drugs, medicaments and biological substances; Z88.6 Allergy status to analgesic agent; Z91.048 Other nonmedicinal substance allergy status
CPT/HCPCS: 81001; 81025; 99284

== ENCOUNTER 2017-02-20 18:12 | Observation (INO) | payer MEDICAID ==
[2017-02-20] MEDS ORDERED: Ondansetron 4 MG/2 ML SDV IVPUSH ONE (18:56)
[2017-02-20] MEDS ORDERED: Sodium Chloride 0.9% 1,000 ML IV SCH (19:00)
[2017-02-20] MEDS ORDERED: HYDROmorphone 1 MG/ML Syringe IVPUSH ONE (19:02)
--- NOTE | 2017-02-20 19:09 | EDM.PDOC ---
ED HPI GENERAL MEDICAL PROBLEM - General Chief Complaint: Abdominal Pain Stated Complaint: cramping fever Time Seen by Provider: 02/20/17 18:46 Source of Information: Reports: Patient History Limitations: Reports: No Limitations - History of Present Illness INITIAL COMMENTS - FREE TEXT/NARRATIVE: 31 years old female patient presented with chief complaint of right-sided lower abdominal pain started earlier today. Constant, cramping. No radiation. /10. Pain is worse with any movement. Better when she sits still. Has similar episode 2 weeks ago that resolved spontaneously. She had a fever of 102 earlier today and she took some ibuprofen around 4 PM. Denies any urinary symptom. Denies any nausea or vomiting. Denies any cough. Denies any vaginal discharge or bleeding. Patient has a history of chronic diarrhea. No blood in the stool. History of cholecystectomy, been dictum A, tubal ligation. Patient was seen earlier today in the clinic and sent to the ER for evaluation RLQ abd pain Pain Score (Numeric/FACES): 7 - Related Data Allergies Allergy/AdvReac Type Severity Reaction Status Date / Time adhesive tape Allergy Rash Verified 02/20/17 19:03 buprenorphine Allergy Nausea Verified 02/20/17 19:03 citric acid Allergy Acid Reflux Verified 02/20/17 19:03 latex Allergy Hives Verified 02/20/17 19:03 Sulfa (Sulfonamide Allergy Hives Verified 02/20/17 19:03 Antibiotics) topiramate [From Topamax] Allergy Nausea Verified 02/20/17 19:03 amitriptyline AdvReac Disorientat Verified 02/20/17 19:03 ion ketorolac [From Toradol] AdvReac Nausea Verified 02/20/17 19:03 Home Meds: Home Meds Levothyroxine 175 mcg PO DAILY 02/05/13 [History] Venlafaxine [Effexor] 75 mg PO BEDTIME 08/27/14 [History] Albuterol Sulfate [Proair Hfa] 1 - 2 puff IH Q4HR PRN 03/31/15 [History] hydrOXYzine HCl [hydrOXYzine] 150 mg PO BEDTIME 07/10/15 [History] Gabapentin [Gabapentin] 900 mg PO TID 12/23/15 [History] tiZANidine HCl [Tizanidine HCl] 2 mg PO Q8H PRN 12/23/15 [History] ARIPiprazole [Abilify] 25 mg PO BEDTIME 01/03/16 [History] Prazosin [Minpress] 2 mg PO BEDTIME 01/03/16 [History] Meloxicam [Meloxicam] 15 mg PO DAILY 02/28/16 [History] busPIRone [Buspar] 30 mg PO BID 05/13/16 [History] Ondansetron [Ondansetron Odt] 4 mg PO Q8H PRN #5 tab.rapdis 08/13/16 [Rx] Calcium Carbonate/Vitamin D3 [Calcium Carb 500 MG] 500 mg PO ASDIRECTED PRN [History] Diclofenac Sodium [Voltaren 1% Gel] 1 film TOP QID 10/02/16 [History] Ranitidine HCl [Ranitidine] 150 mg PO BID PRN 10/02/16 [History] Past Medical History HEENT History: Reports: Impaired Vision Cardiovascular History: Reports: Other (See Below) Other Cardiovascular History: heart palpitation Respiratory History: Reports: Asthma Other Respiratory History: EXERCISE INDUCED ASTHMA Gastrointestinal History: Reports: Gastritis, GERD Genitourinary History: Reports: Other (See Below) Other Genitourinary History: cervical dysplagia [employer] History: Reports: Other OB/BYN History: cervical dysplagia Musculoskeletal History: Reports: Back Pain, Chronic, Fracture, Fibromyalgia Other Musculoskeletal History: EHLER'S DANLOS SYNDROME Neurological History: Reports: Concussion, Migraines Psychiatric History: Reports: Anxiety, Bipolar, Depression, Mood Swings, Psych Hospitalization(s), Suicide Attempt, Suicidal Ideation Other Psychiatric History: last psych hospital last week. Endocrine/Metabolic History: Reports: Hypothyroidism Hematologic History: Reports: Anemia, B12 Deficiency, Blood Transfusion(s), Iron Deficiency Immunologic History: Reports: None Oncologic (Cancer) History: Reports: None Dermatologic History: Reports: None - Infectious Disease History Infectious Disease History: Reports: Chicken Pox - Past Surgical History GI Surgical History: Reports: Appendectomy, Cholecystectomy Female Surgical History: Reports: Tubal Ligation, Other (See Below) Other Female Surgeries/Procedures: cervical biopsy = dysplasia Social & Family History - Family History Family Medical History: Noncontributory - Tobacco Use Smoking Status *Q: Current Every Day Smoker Years of Tobacco use: 7 Packs/Tins Daily: 0.5 Used Tobacco, but Quit: No Month Tobacco Last Used: SEPTEMBER Second Hand Smoke Exposure: No - Caffeine Use Caffeine Use: Reports: Coffee - Alcohol Use Days Per Week of Alcohol Use: 0 Number of Drinks Per Day: 5 Total Drinks Per Week: 0 - Recreational Drug Use Recreational Drug Use: No Drug Use in Last 12 Months: Yes Recreational Drug Type: Reports: Marijuana/Hashish, Vicodin Recreational Drug Use Frequency: Rarely ED ROS GENERAL - Review of Systems Review Of Systems: ROS reveals no pertinent complaints other than HPI. ED EXAM, GI/ABD - Physical Exam Exam: See Below Exam Limited By: No Limitations General Appearance: Alert, WD/WN, No Apparent Distress Eyes: Bilateral: Normal Appearance, EOMI Ears: Normal External Exam, Normal Canal, Hearing Grossly Normal, Normal TMs Throat/Mouth: Normal Inspection, Normal Lips, Normal Teeth, Normal Gums, Normal Oropharynx, Normal Voice, No Airway Compromise Head: Atraumatic, Normocephalic Neck: Normal Inspection, Supple, Non-Tender, Full Range of Motion Respiratory/Chest: No Respiratory Distress, Lungs Clear, Normal Breath Sounds, No Accessory Muscle Use, Chest Non-Tender Cardiovascular: Normal Peripheral Pulses, Regular Rate, Rhythm, No Edema, No Gallop, No JVD, No Murmur, No Rub GI/Abdominal Exam: Normal Bowel Sounds, Soft, No Organomegaly, No Distention, Tender (Right lower quadrant abdominal tenderness.). No: No Mass, Guarding, Rigid, Rebound, Abnormal Bowel Sounds, Mass, Hepatomegaly, Splenomegaly Course - Vital Signs Last Recorded V/S: Last Vital Signs Temp 38.0 C 02/20/17 19:01 Pulse 112 H 02/20/17 19:01 Resp 16 02/20/17 19:01 BP 114/68 02/20/17 19:01 Pulse Ox 98 02/20/17 19:01 - Orders/Labs/Meds Orders: Active Orders 24 hr Category Date Time Status Abdomen Pelvis w Cont [CT] Stat Exams 02/20/17 20:29 Taken Pelvis Non OB Comp [US] Urgent Exams 02/20/17 18:56 Taken CULTURE BLOOD [BC] Urgent Lab 02/20/17 19:10 Received CULTURE BLOOD [BC] Urgent Lab 02/20/17 19:16 Received Iopamidol [Isovue-300 (61%)] Med 02/20/17 20:45 Active 100 ml IV . DIRECTED Piperacillin/Tazobactam [Zosyn] 3.375 gm Med 02/20/17 22:00 Ordered Sodium Chloride 0.9% [Normal Saline] 50 ml IV Q6H Sodium Chloride 0.9% [Normal Saline] 1,000 ml Med 02/20/17 19:00 Active IV .BOLUS Sodium Chloride 0.9% [Normal Saline] 100 ml Med 02/20/17 20:45 Active IV ASDIRECTED Blood Culture x2 Reflex Set [OM.PC] Urgent Oth 02/20/17 18:56 Ordered ED Antiemetic Medication Reflex [OM.PC] Click to Edit Oth 02/20/17 18:56 Ordered Medication Orders Sodium Chloride (Normal Saline) 1,000 mls @ 999 mls/hr IV .BOLUS [facility] Last Admin: 02/20/17 19:23 Dose: 999 mls/hr Sodium Chloride (Normal Saline) 100 mls @ 3 mls/sec IV ASDIRECTED [facility] Last Admin: 02/20/17 20:53 Dose: 3 mls/sec Piperacillin Sod/Tazobactam (Sod 3.375 gm/ Sodium Chloride) 50 mls @ 100 mls/ hr IV Q6H [facility] Iopamidol (Isovue-300 (61%)) 100 ml IV . DIRECTED [facility] Last Admin: 02/20/17 20:53 Dose: 100 ml Labs: Laboratory Tests 02/20/17 02/20/17 02/20/17 Range/Units 19:16 19:16 19:16 WBC 12.7 H (4.5-11.0) K/uL RBC 4.11 (3.30-5.50) M/uL Hgb 12.1 (12.0-15.0) g/dL Hct 37.6 (36.0-48.0) % MCV 92 (80-98) fL MCH 29 (27-31) pg MCHC 32 (32-36) % Plt Count 253 (150-400) K/uL Neut % (Auto) 68 H (36-66) % Lymph % (Auto) 20 L (24-44) % [place] % (Auto) 11 H (2-6) % Eos % (Auto) 1 L (2-4) % Baso % (Auto) 0 (0-1) % Sodium 136 L (140-148) mmol/L Potassium 4.0 (3.6-5.2) mmol/L Chloride 101 (100-108) mmol/L Carbon Dioxide 27 (21-32) mmol/L Anion Gap 12.0 (5.0-14.0) mmol/L BUN 7 D (7-18) mg/dL Creatinine 1.1 H (0.6-1.0) mg/dL Est Cr Clr Drug Dosing 56.94 mL/min Estimated GFR (MDRD) 59 L (>60) Glucose 104 (74-106) mg/dL Lactic Acid 1.6 (0.4-2.0) mmol/L Calcium 8.7 (8.5-10.1) mg/dL Total Bilirubin 0.4 D (0.2-1.0) mg/dL AST 19 (15-37) U/L ALT 24 (12-78) U/L Alkaline Phosphatase 119 H (46-116) U/L Total Protein 7.8 (6.4-8.2) g/dL Albumin 3.9 (3.4-5.0) g/dL Globulin 3.9 H (2.3-3.5) g/dL Albumin/Globulin Ratio 1.0 L (1.2-2.2) Lipase 95 (73-393) U/L HCG, Qual Urine Color Urine Appearance Urine pH (4.5-8.0) Ur Specific [place] (1.008-1.030) Urine Protein (NEGATIVE) mg/dL Urine Glucose (UA) (NEGATIVE) mg/dL Urine Ketones (NEGATIVE) mg/dL Urine Occult Blood (NEGATIVE) Urine Nitrite (NEGATIVE) Urine Bilirubin (NEGATIVE) Urine Urobilinogen (NORMAL) mg/dL Ur Leukocyte Esterase (NEGATIVE) Urine RBC (0-5) Urine WBC (0-5) Ur Epithelial Cells Amorphous Sediment Urine Bacteria Urine Mucus 02/20/17 02/20/17 Range/Units 19:16 19:31 WBC (4.5-11.0) K/uL RBC (3.30-5.50) M/uL Hgb (12.0-15.0) g/dL Hct (36.0-48.0) % MCV (80-98) fL MCH (27-31) pg MCHC (32-36) % Plt Count (150-400) K/uL Neut % (Auto) (36-66) % Lymph % (Auto) (24-44) % [place] % (Auto) (2-6) % Eos % (Auto) (2-4) % Baso % (Auto) (0-1) % Sodium (140-148) mmol/L Potassium (3.6-5.2) mmol/L Chloride (100-108) mmol/L Carbon Dioxide (21-32) mmol/L Anion Gap (5.0-14.0) mmol/L BUN (7-18) mg/dL Creatinine (0.6-1.0) mg/dL Est Cr Clr Drug Dosing mL/min Estimated GFR (MDRD) (>60) Glucose (74-106) mg/dL Lactic Acid (0.4-2.0) mmol/L Calcium (8.5-10.1) mg/dL Total Bilirubin (0.2-1.0) mg/dL AST (15-37) U/L ALT (12-78) U/L Alkaline Phosphatase (46-116) U/L Total Protein (6.4-8.2) g/dL Albumin (3.4-5.0) g/dL Globulin (2.3-3.5) g/dL Albumin/Globulin Ratio (1.2-2.2) Lipase (73-393) U/L HCG, Qual Negative Urine Color Yellow Urine Appearance Clear Urine pH 6.0 (4.5-8.0) Ur Specific [place] 1.015 (1.008-1.030) Urine Protein Negative (NEGATIVE) mg/dL Urine Glucose (UA) Normal (NEGATIVE) mg/dL Urine Ketones Negative (NEGATIVE) mg/dL Urine Occult Blood Moderate (NEGATIVE) Urine Nitrite Negative (NEGATIVE) Urine Bilirubin Negative (NEGATIVE) Urine Urobilinogen Normal (NORMAL) mg/dL Ur Leukocyte Esterase Negative (NEGATIVE) Urine RBC 0-5 (0-5) Urine WBC 0-5 (0-5) Ur Epithelial Cells Few Amorphous Sediment Not seen Urine Bacteria Few Urine Mucus Few Meds: Medications Generic Name Dose Route Start Last Admin Trade Name Freq PRN Reason Stop Dose Admin Sodium Chloride 1,000 mls @ 999 mls/hr 02/20/17 19:00 02/20/17 19:23 Normal Saline IV 999 mls/hr .BOLUS CATALINO Administration Sodium Chloride 100 mls @ 3 mls/sec 02/20/17 20:45 02/20/17 20:53 Normal Saline IV 3 mls/sec ASDIRECTED [facility]ALINO Administration Piperacillin Sod/Tazobactam 50 mls @ 100 mls/hr 02/20/17 22:00 Sod 3.375 gm/ Sodium Chloride IV Q6H [facility]INO Iopamidol 100 ml 02/20/17 20:45 02/20/17 20:53 Isovue-300 (61%) IV 100 ml . DIRECTED CATALINO Administration Discontinued Medications Generic Name Dose Route Start Last Admin Trade Name Elton PRN Reason Stop Dose Admin Hydromorphone HCl 1 mg 02/20/17 19:02 02/20/17 19:27 Dilaudid IVPUSH 02/20/17 19:03 1 mg .ONETIME ONE Administration Ondansetron HCl 4 mg 02/20/17 18:56 02/20/17 19:25 Zofran IVPUSH 02/20/17 18:57 4 mg ONETIME ONE Administration - Re-Assessments/Exams Free Text/Narrative Re-Assessment/Exam: 02/20/17 19:08 Patient was seen and examined shortly after arrival. Started on IV fluids 1 L normal saline bolus, 4 mg IV Zofran, 1 mg IV Dilaudid. Lab and imaging reviewed with the patient. Unclear etiology at this point. Possible pelvic inflammatory disease versus viral syndrome versus gastroenteritis versus inflammatory bowel disease or colitis versus endometriosis versus tumor , etc. At this point patient was given one dose of Zosyn in the ER. Blood culture is pending. Case was discussed with Dr. Valles hospitalist meat boner and he accepted admission for further management. Patient agrees with the plan. Stable for admission. 02/20/17 21:55 02/20/17 21:59 Departure - Departure Time of Disposition: 21:58 Disposition: Admitted As Inpatient 68 Condition: Good Clinical Impression: Abdominal pain, Fever - Discharge Information Referrals: Adelina Canales NP [Primary Care Provider] - Forms: ED Department Discharge - My Orders Last 24 Hours: My Active Orders 02/20/17 18:56 Pelvis Non OB Comp [US] Urgent Blood Culture x2 Reflex Set [OM.PC] Urgent ED Antiemetic Medication Reflex [OM.PC] Click to Edit 02/20/17 19:00 Sodium Chloride 0.9% [Normal Saline] 1,000 ml IV .BOLUS 02/20/17 19:10 CULTURE BLOOD [BC] Urgent 02/20/17 19:16 CULTURE BLOOD [BC] Urgent 02/20/17 20:29 Abdomen Pelvis w Cont [CT] Stat 02/20/17 20:45 Iopamidol [Isovue-300 (61%)] 100 ml IV . DIRECTED Sodium Chloride 0.9% [Normal Saline] 100 ml IV ASDIRECTED 02/20/17 22:00 Piperacillin/Tazobactam [Zosyn] 3.375 gm Sodium Chloride 0.9% [Normal Saline] 50 ml IV Q6H - Assessment/Plan Last 24 Hours: My Active Orders 02/20/17 18:56 Pelvis Non OB Comp [US] Urgent Blood Culture x2 Reflex Set [OM.PC] Urgent ED Antiemetic Medication Reflex [OM.PC] Click to Edit 02/20/17 19:00 Sodium Chloride 0.9% [Normal Saline] 1,000 ml IV .BOLUS 02/20/17 19:10 CULTURE BLOOD [BC] Urgent 02/20/17 19:16 CULTURE BLOOD [BC] Urgent 02/20/17 20:29 Abdomen Pelvis w Cont [CT] Stat 02/20/17 20:45 Iopamidol [Isovue-300 (61%)] 100 ml IV . DIRECTED Sodium Chloride 0.9% [Normal Saline] 100 ml IV ASDIRECTED 02/20/17 22:00 Piperacillin/Tazobactam [Zosyn] 3.375 gm Sodium Chloride 0.9% [Normal Saline] 50 ml IV Q6H Assessment:: Admission to Dr. Valles.
[2017-02-20] MEDS ORDERED: Iopamidol 612 MG/ML 100 ML Bottle IV SCH (20:45)
[2017-02-20] MEDS ORDERED: Sodium Chloride 0.9% 100 ML IV SCH (20:45)
[2017-02-20] MEDS: Piperacillin/Tazobactam 3.375 GM in Sodium Chloride 0.9% 50 ML IV SCH (22:23)
[2017-02-20] MEDS ORDERED: Ondansetron 4 MG/2 ML SDV IV PRN (22:24)
[2017-02-20] MEDS ORDERED: Piperacillin/Tazobactam 3.375 GM in Sodium Chloride 0.9% 50 ML IV SCH (22:30)
[2017-02-20] MEDS ORDERED: Albuterol 8 GM Inhaler INH PRN (22:36)
[2017-02-20] MEDS ORDERED: tiZANidine 2 MG Tab PO PRN (22:37)
[2017-02-20] MEDS: HYDROmorphone 1 MG/ML Syringe IVPUSH PRN (22:41)
[2017-02-20] MEDS: Sodium Chloride 0.9% 1,000 ML IV SCH (23:41)
[2017-02-21] MEDS ORDERED: Nicotine 14 MG/24 Hr Patch TRDERM ONE (01:00)
[2017-02-21] MEDS: HYDROmorphone 1 MG/ML Syringe IVPUSH PRN ×3 (03:33→10:14)
[2017-02-21] MEDS: Piperacillin/Tazobactam 3.375 GM in Sodium Chloride 0.9% 50 ML IV SCH (03:38)
[2017-02-21] MEDS ORDERED: Diclofenac Sodium 1% Gel 100 GM Tube TOP SCH ×2 (06:00→10:00)
[2017-02-21] MEDS: Sodium Chloride 0.9% 1,000 ML IV SCH (07:12)
[2017-02-21] MEDS ORDERED: Levothyroxine 50 MCG Tab PO SCH (07:30)
[2017-02-21] MEDS: Gabapentin 300 MG Cap PO SCH ×2 (08:41→15:13)
[2017-02-21] MEDS ORDERED: busPIRone 10 MG Tab PO SCH (09:00)
[2017-02-21] MEDS ORDERED: Meloxicam 7.5 MG Tab PO SCH (09:00)
[2017-02-21] MEDS ORDERED: Piperacillin/Tazobactam/Dext 3.375 GM in Premix Bag 1 BAG IV SCH (10:00)
[2017-02-21] MEDS ORDERED: oxyCODONE 5 MG Tab PO PRN (11:46)
[2017-02-21] MEDS ORDERED: Ibuprofen 600 MG Tab PO PRN (12:00)
[2017-02-21 14:30] VITALS: BP 89/55
--- NOTE | 2017-02-21 15:12 | PCM.DCSUM1 ---
Discharge Summary - Hospital Course Brief History: previous appendectomy and cholecystectomy who presented with acute right lower quadrant abdominal pain. She was admitted for management of abdominal pain with mild inflammatory changes noted on the CT scan. - Discharge Data Discharge Date: 02/21/17 Discharge Disposition: Home, Self-Care 01 Condition: Fair - Discharge Diagnosis/Problem(s) (1) Right lower quadrant abdominal pain SNOMED Code(s): 763579338 ICD Code: R10.31 - RIGHT LOWER QUADRANT PAIN Status: Acute Current Visit : Yes Problem Details: Inflammatory changes noted in the right hemipelvis - Patient Summary/Data Hospital Course: Snow presented initially to the walk-in clinic with right lower quadrant abdominal pain. She was sent to the emergency room for further evaluation and CT scanning. CT scan in the emergency room showed some mild stranding in the right lower quadrant/pelvis with mild reactive lymphadenopathy versus retroperitoneal nodules. She had a low-grade temperature elevation at the time of presentation. Laboratory studies were unremarkable. She was empirically started on antibiotics and admitted to the hospital for hydration and further management. Throughout the night her pain has improved significantly but has not quite resolved. She has not had any additional fevers. She tolerated clear liquids for breakfast and did tolerate a regular lunch though she had a small emesis right at the beginning of lunch. After she ate she has felt fairly good with the exception of mild residual pain. I did review her CT scan with the on- call surgeon who felt that this was nonspecific inflammation and did not require urgent intervention at this time. It is unclear what has caused the inflammation but bacterial infection is not suspected. Because she has improved significantly I think she is safe for outpatient management. I did provide a small prescription for pain medications as well as antinausea medication to help the transition home. She is are taking anti-inflammatories which she will continue. I did recommend a follow-up CT scan in 2-4 weeks to ensure that the inflammation has resolved. - Patient Instructions Diet: Regular Diet as Tolerated Activity: As Tolerated Driving: Do Not Drive (If taking pain pills) Showering/Bathing: May Shower Notify Provider of: Fever, Increased Pain, Nausea and/or Vomiting Other/Special Instructions: 1. You were in the hospital for management of right lower quadrant pain. The exact etiology of this pain is not entirely clear. On the CT scan we did notice some inflammation in the right lower part of your abdomen/pelvis. I do not believe you have an active bacterial infection at this time though virus could be possible. I recommend a repeat CT scan in 2-4 weeks to ensure that the inflammation has resolved. You should follow-up with Adelina Canales to discuss setting up the repeat CT scan in approximately 2 weeks. 2. Please continue your usual medications as previously prescribed. 3. Please seek medical attention if you develop fever greater than 101, have sudden worsening of your abdominal pain, persistent vomiting or severe diarrhea. - Discharge Plan Prescriptions/Med Rec: Ondansetron [Ondansetron ODT] 4 mg PO Q8H PRN #20 tab.rapdis PRN Reason: Nausea or vomiting oxyCODONE 5 mg PO Q4H PRN #15 tablet PRN Reason: Pain Home Medications: Home Meds Levothyroxine 175 mcg PO DAILY 02/05/13 [History] Venlafaxine [Effexor] 75 mg PO BEDTIME 08/27/14 [History] Albuterol Sulfate [Proair Hfa] 1 - 2 puff IH Q4HR PRN 03/31/15 [History] hydrOXYzine HCl [hydrOXYzine] 150 mg PO BEDTIME 07/10/15 [History] Gabapentin 900 mg PO TID 12/23/15 [History] tiZANidine HCl [Tizanidine HCl] 2 mg PO Q8H PRN 12/23/15 [History] ARIPiprazole [Abilify] 25 mg PO BEDTIME 01/03/16 [History] Prazosin [Minpress] 2 mg PO BEDTIME 01/03/16 [History] Meloxicam 15 mg PO DAILY 02/28/16 [History] busPIRone [Buspar] 30 mg PO BID 05/13/16 [History] Calcium Carbonate/Vitamin D3 [Calcium Carb 500 MG] 500 mg PO ASDIRECTED PRN [History] Diclofenac Sodium [Voltaren 1% Gel] 1 film TOP QID 10/02/16 [History] Ranitidine HCl [Ranitidine] 150 mg PO BID PRN 10/02/16 [History] Ondansetron [Ondansetron ODT] 4 mg PO Q8H PRN #20 tab.rapdis 02/21/17 [Rx] oxyCODONE 5 mg PO Q4H PRN #15 tablet 02/21/17 [Rx] Patient Handouts: Nausea, Adult, Oxycodone tablets or capsules Referrals: Adelina Canales NP [Primary Care Provider] - (f/u in 2 weeks - follow-up hospital stay for right lower quadrant abdominal pain, discuss repeat CT scan in 2-4 weeks) - Discharge Summary/Plan Comment DC Time >30 min.: No (25) - Patient Data Vitals - Most Recent: Last Vital Signs Temp 36.0 C 02/21/17 14:29 Pulse 67 02/21/17 14:29 Resp 18 02/21/17 14:29 BP 89/55 L 02/21/17 14:29 Pulse Ox 93 L 02/21/17 14:29 Weight - Most Recent: 68.039 kg I&O - Last 24 hours: Intake & Output 02/21/17 02/21/17 02/21/17 06:59 14:59 22:59 Intake Total 863 50 Output Total 100 Balance 863 -50 Lab Results - Last 24 hrs: Laboratory Results - last 24 hr 02/21/17 Range/Units 05:52 WBC 7.9 (4.5-11.0) K/uL RBC 3.48 (3.30-5.50) M/uL Hgb 10.3 L (12.0-15.0) g/dL Hct 32.1 L (36.0-48.0) % MCV 92 (80-98) fL MCH 30 (27-31) pg MCHC 32 (32-36) % Plt Count 215 (150-400) K/uL Med Orders - Current: Current Medications Albuterol (Ventolin Hfa) 1 - 2 gm INH Q4H PRN PRN Reason: Shortness of Breath Aripiprazole (Abilify) 25 mg PO BEDTIME [facility] Buspirone HCl (Buspar) 30 mg PO BID [facility] Last Admin: 02/21/17 08:43 Dose: 30 mg Diclofenac Sodium (Voltaren 1% Gel) 0 gm TOP QID [facility] Last Admin: 02/21/17 10:09 Dose: 1 applic Gabapentin (Neurontin) 900 mg PO TID [facility] Last Admin: 02/21/17 08:41 Dose: 900 mg Hydromorphone HCl (Dilaudid) 1 mg IVPUSH Q1H PRN PRN Reason: Pain Last Admin: 02/21/17 10:14 Dose: 1 mg Hydroxyzine HCl (Atarax) 150 mg PO BEDTIME [facility] Ibuprofen (Motrin) 600 mg PO Q6H PRN PRN Reason: Pain/Fever Last Admin: 02/21/17 12:40 Dose: 600 mg Levothyroxine Sodium 100 mcg/ (Levothyroxine Sodium 75 mcg) 175 mcg PO DAILY@ 0730 [facility] Last Admin: 02/21/17 07:24 Dose: 175 mcg Meloxicam (Mobic) 15 mg PO DAILY [facility] Last Admin: 02/21/17 08:42 Dose: 15 mg Ondansetron HCl (Zofran) 4 mg IV Q4H PRN PRN Reason: Nausea/Vomiting Last Admin: 02/21/17 12:11 Dose: 4 mg Oxycodone HCl (Oxycodone) 5 mg PO Q4H PRN PRN Reason: Pain Prazosin HCl (Minpress) 2 mg PO BEDTIME [facility] Ranitidine HCl (Zantac) 150 mg PO BID PRN PRN Reason: ACID REFLUX Tizanidine HCl (Zanaflex) 2 mg PO Q8H PRN PRN Reason: Spasms Venlafaxine HCl (Effexor Xr) 75 mg PO BEDTIME [facility] Discontinued Medications Diclofenac Sodium (Voltaren 1% Gel) 1 gm TOP QID [facility] Last Admin: 02/21/17 05:37 Dose: Not Given Hydromorphone HCl (Dilaudid) 1 mg IVPUSH .ONETIME ONE Stop: 02/20/17 19:03 Last Admin: 02/20/17 19:27 Dose: 1 mg Sodium Chloride (Normal Saline) 1,000 mls @ 999 mls/hr IV .BOLUS [facility] Last Admin: 02/20/17 19:23 Dose: 999 mls/hr Sodium Chloride (Normal Saline) 100 mls @ 3 mls/sec IV ASDIRECTED [facility] Last Admin: 02/20/17 20:53 Dose: 3 mls/sec Piperacillin Sod/Tazobactam (Sod 3.375 gm/ Sodium Chloride) 50 mls @ 100 mls/ hr IV Q6H [facility] Last Admin: 02/21/17 03:38 Dose: 100 mls/hr Sodium Chloride (Normal Saline) 1,000 mls @ 125 mls/hr IV ASDIRECTED [facility] Last Admin: 02/21/17 07:12 Dose: 125 mls/hr Piperacillin Sod/Tazobactam (Sod 3.375 gm/ Sodium Chloride) 50 mls @ 100 mls/ hr IV Q6H [facility] Last Admin: 02/20/17 22:36 Dose: Not Given Piperacillin/Tazobactam/ (Dextrose 3.375 gm/ Premix) 50 mls @ 100 mls/hr IV Q6HR [facility] Last Admin: 02/21/17 10:10 Dose: 100 mls/hr Iopamidol (Isovue-300 (61%)) 100 ml IV . DIRECTED [facility] Last Admin: 02/20/17 20:53 Dose: 100 ml Nicotine (Habitrol) 14 mg TRDERM ONETIME ONE Stop: 02/21/17 01:01 Last Admin: 02/21/17 00:57 Dose: 14 mg Ondansetron HCl (Zofran) 4 mg IVPUSH ONETIME ONE Stop: 02/20/17 18:57 Last Admin: 02/20/17 19:25 Dose: 4 mg Ranitidine HCl (Zantac) 150 mg PO BID PRN PRN Reason: acid reflux Last Admin: 02/20/17 23:49 Dose: 150 mg - Exam Quality Assessment: Denies: Supplemental Oxygen General: Reports: Alert, Oriented, Cooperative, No Acute Distress Neck: Reports: Supple Lungs: Reports: Normal Respiratory Effort GI/Abdominal Exam: Soft, No Distention Psy/Mental Status: Reports: Alert, Normal Affect *Q Meaningful Use (DIS) - VTE *Q VTE Criteria *Q: - Stroke *Q Stroke Criteria *Q: - AMI *Q AMI Criteria *Q:
[2017-02-21] MEDS ORDERED: hydrOXYzine HCl 25 MG Tab PO SCH (21:00)
[2017-02-21] MEDS ORDERED: Prazosin 1 MG Cap PO SCH (21:00)
[2017-02-21] MEDS ORDERED: Venlafaxine 75 MG Cap.ER PO SCH (21:00)
[2017-02-21] MEDS ORDERED: ARIPiprazole 10 MG Tab PO SCH (21:00)
--- NOTE | 2017-02-23 08:55 | HP ---
CHIEF COMPLAINT: Right lower quadrant abdominal pain. HISTORY OF PRESENT ILLNESS: A 31-year-old who has had her gallbladder and appendix out in the past, woke up this morning with severe right lower quadrant abdominal pain. No nausea, but was running a fever. Was seen in the walk-in clinic and because of her pain, they sent over to the emergency room for further evaluation. Was evaluated by the emergency room physician and an ultrasound was obtained, which really was nonspecific. CT scan showed some possible enlarged lymph nodes in the pelvis on the right side. The patient had a slightly elevated white count of 12,700, 68% neutrophils, 20% lymphocytes, 11% monocytes; hemoglobin 12.1; platelets 253,000. Urinalysis was unremarkable. She states that she has had chronic loose stools, which has unchanged. No blood in her stools. No dysuria. No vaginal discharge. It was 2 weeks ago. She did have a little bit of cramping associated with it. She has had no known exposure to STDs. PAST MEDICAL HISTORY: 1. Appendectomy. 2. Cholecystectomy. 3. Significant behavioral health problems. 4. She has also had tubal ligation. Otherwise, no other surgeries that she reports. MEDICATIONS: 1. Albuterol inhaler p.r.n. 2. Abilify 25 mg at bedtime. 3. BuSpar 30 mg b.i.d. 4. Calcium with vitamin D. 5. Voltaren Gel topically q.i.d. 6. Gabapentin 900 mg t.i.d. 7. Hydroxyzine 150 mg at bedtime. 8. Levothyroxine 175 mcg daily. 9. Meloxicam 15 mg daily. 10.Ondansetron 4 mg q.8 hours p.r.n. 11.Prazosin 2 mg at bedtime. 12.Ranitidine 150 mg b.i.d. 13.Tizanidine 2 mg q.8 hours p.r.n. 14.Venlafaxine 75 mg at bedtime. ALLERGIES: ADHESIVE TAPE, BUPRENORPHINE, CITRIC ACID, LATEX, AND POSSIBLY OTHERS. SOCIAL HISTORY: Smokes about half a pack of cigarettes a day and is in the process of trying to quit. No alcohol use. No street drugs. FAMILY HISTORY: Noncontributory. No one else that she has been around has been ill. REVIEW OF SYSTEMS: Denies headaches, vision changes, or upper respiratory symptoms. No chest pain, shortness of breath, cough, nausea or vomiting. She does have chronic diarrhea. No bloody black stools. No dysuria. No vaginal symptoms. No skin problems. No swelling of her legs. No neurologic complaints reported. OBJECTIVE: VITAL SIGNS: Weight 68.6 kg. Temperature 38, pulse 112, blood pressure 114/68, respirations 16, and O2 saturation 98% on room air. GENERAL: The patient is alert and oriented x3. PHARYNX: Clear. NECK: Supple. No significant adenopathy or masses. LUNGS: Clear. HEART: Regular without murmurs. ABDOMEN: Soft, but did have significant discomfort in the right lower quadrant. No distention. No mass or organomegaly palpated. EXTREMITIES: No edema. SKIN: Negative. LABORATORY DATA: White count slightly elevated at 12.7 with 68% neutrophils, 20% lymphocytes, 11% monocytes; hemoglobin 12.1; platelets 253,000. Sodium 136, potassium 4.0, BUN of 7, creatinine 1.1, glucose 104. Liver functions were normal. Alkaline phosphatase slightly high at 119. Lipase normal at 95. test was negative. Urinalysis was unremarkable. CT scan showed missing appendix; inflammatory changes; mild adenopathy; retroperitoneal nodes; right hemipelvis, uncertain etiology, could be endometriosis versus PID. ASSESSMENT: 1. Right lower quadrant abdominal and pelvic pain with fever, but otherwise not a lot of other findings. The patient has been started on IV Zosyn in the emergency room, which we will continue. Dilaudid for pain. Zofran if nausea develops. IV fluids. We will admit her under observation. Anticipate less than 2-midnight stay. 2. Significant behavioral health issue that she is on a number of medications for, which we will continue. 3. Other surgeries and medical problems as listed. Damaso Valles MD /[id number]
--- NOTE | 2017-02-23 09:10 | US ---
Pelvis Non OB Comp INDICATION: rt sided pelvic pain COMPARISON: None. FINDINGS: The uterus measures 9.0 cm in length. Endometrial stripe measures 9 mm. Questionable trace fluid within the endometrium canal near the uterine fundus. Left and right ovaries are normal in appe arance. No free fluid in the posterior cul-de-sac. IMPRESSION: Unremarkable pelvic ultrasound.
== END 2017-02-21 15:40 | disposition home or self-care (01) ==
LOC: JP.ED 18:12 → JP.MS 22:24
PROVIDERS: ADMIT Family Medicine; ATTEND Internal Medicine
DX: R10.31 Right lower quadrant pain (principal); J45.909 Unspecified asthma, uncomplicated; K21.9 Gastro-esophageal reflux disease without esophagitis; F41.9 Anxiety disorder, unspecified; F32.9 Major depressive disorder, single episode, unspecified; E03.9 Hypothyroidism, unspecified; Z90.49 Acquired absence of other specified parts of digestive tract; Z98.890 Other specified postprocedural states; Z98.51 Tubal ligation status; F17.210 Nicotine dependence, cigarettes, uncomplicated; Z88.2 Allergy status to sulfonamides; Z91.040 Latex allergy status; Z88.8 Allergy status to other drugs, medicaments and biological substances
CPT/HCPCS: 36415; 74177; 76856; 80053; 81001; 83605; 83690; 84703; 85025; 85027; 87040; 96361; 96365; 96366; 96375; 96376; 99285; A9270; G0378; J1170; J2405; J2543; J7030; J7040; J7050; Q9967

== ENCOUNTER 2017-02-27 21:13 | Emergency (ER) | payer MEDICAID ==
[2017-02-27 21:44] VITALS: BP 122/62
[2017-02-27] MEDS ORDERED: Sodium Chloride 0.9% 1,000 ML IV STA (22:11)
[2017-02-27] MEDS ORDERED: HYDROmorphone 0.5 MG/0.5 ML Syringe IVPUSH PRN (22:15)
[2017-02-27] MEDS: Sodium Chloride 0.9% 10 ML Syringe FLUSH PRN ×2 (22:25→22:47)
--- NOTE | 2017-02-27 22:30 | EDM.PDOC ---
ED HPI GENERAL MEDICAL PROBLEM - General Chief Complaint: Abdominal Pain Stated Complaint: ABD PAIN Time Seen by Provider: 02/27/17 21:43 Source of Information: Reports: Patient, Family History Limitations: Reports: No Limitations - History of Present Illness INITIAL COMMENTS - FREE TEXT/NARRATIVE: 31 year old female who presents to the ED with ongoing RLQ abdominal pain. She had been hospitalized and discharged on 02/21/2017 with these symptoms. At the time, her CT of abdomen showed some non-specific changes in the right lower abdomen with some possible lymph node swelling. Pelvic US was normal. she had been admitted for pain control, fluids and anti-nausea meds. Her symptoms improved, She was initially treated with antibiotics, but after review, these were stopped and she was discharged with zofran and oxycodone for symptoms and is scheduled for repeat CT scan in 2 weeks after previous scan. This morning she ran out of her oxycodone. When she took this, her pain controlled. Over the day the pain has worsened. She denies N/V, fever, chills, change in stools, dysuria, frequency. She is very concerned whether something is changing and is here to potentially have the CT repeated. Quality: Reports: Pressure, Same as Previous Episode, Throbbing Severity: Moderate Worsens with: Reports: Movement Associated Symptoms: Reports: Loss of Appetite. 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) (was taking oxycodone, but ran out, had been sent home with oxycodone 5 mg tab, #15) right side Pain Score (Numeric/FACES): 7 - Related Data Allergies Allergy/AdvReac Type Severity Reaction Status Date / Time adhesive tape Allergy Rash Verified 02/27/17 21:50 buprenorphine Allergy Nausea Verified 02/27/17 21:50 citric acid Allergy Acid Reflux Verified 02/27/17 21:50 latex Allergy Hives Verified 02/27/17 21:50 Sulfa (Sulfonamide Allergy Hives Verified 02/27/17 21:50 Antibiotics) topiramate [From Topamax] Allergy Nausea Verified 02/27/17 21:50 amitriptyline AdvReac Disorientat Verified 02/27/17 21:50 ion ketorolac [From Toradol] AdvReac Nausea Verified 02/27/17 21:50 Home Meds: Home Meds Levothyroxine 175 mcg PO DAILY 02/05/13 [History] Venlafaxine [Effexor] 75 mg PO BEDTIME 08/27/14 [History] Albuterol Sulfate [Proair Hfa] 1 - 2 puff IH Q4HR PRN 03/31/15 [History] hydrOXYzine HCl [hydrOXYzine] 150 mg PO BEDTIME 07/10/15 [History] Gabapentin 900 mg PO TID 12/23/15 [History] tiZANidine HCl [Tizanidine HCl] 2 mg PO Q8H PRN 12/23/15 [History] ARIPiprazole [Abilify] 25 mg PO BEDTIME 01/03/16 [History] Prazosin [Minpress] 2 mg PO BEDTIME 01/03/16 [History] Meloxicam 15 mg PO DAILY 02/28/16 [History] busPIRone [Buspar] 30 mg PO BID 05/13/16 [History] Calcium Carbonate/Vitamin D3 [Calcium Carb 500 MG] 500 mg PO ASDIRECTED PRN [History] Diclofenac Sodium [Voltaren 1% Gel] 1 film TOP QID 10/02/16 [History] Ranitidine HCl [Ranitidine] 150 mg PO BID PRN 10/02/16 [History] Ondansetron [Ondansetron ODT] 4 mg PO Q8H PRN #20 tab.rapdis 02/21/17 [Rx] oxyCODONE 5 mg PO Q4H PRN #15 tablet 02/21/17 [Rx] oxyCODONE 5 mg PO Q4HR PRN 4 Days #15 tab MDD 6 02/27/17 [Rx] Past Medical History HEENT History: Reports: Impaired Vision Cardiovascular History: Reports: Other (See Below) Other Cardiovascular History: heart palpitation Respiratory History: Reports: Asthma Other Respiratory History: EXERCISE INDUCED ASTHMA Gastrointestinal History: Reports: Gastritis, GERD Genitourinary History: Reports: Other (See Below) Other Genitourinary History: cervical dysplagia 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 Endocrine/Metabolic History: Reports: Hypothyroidism Hematologic History: Reports: Anemia, B12 Deficiency, Blood Transfusion(s), Iron Deficiency Immunologic History: Reports: None Oncologic (Cancer) History: Reports: None Dermatologic History: Reports: None - Infectious Disease History Infectious Disease History: Reports: Chicken Pox - Past Surgical History Head Surgeries/Procedures: Reports: None HEENT Surgical History: Reports: None Cardiovascular Surgical History: Reports: None Respiratory Surgical History: Reports: None GI Surgical History: Reports: Appendectomy, Cholecystectomy Female Surgical History: Reports: Tubal Ligation, Other (See Below) Other Female Surgeries/Procedures: cervical biopsy = dysplasia Endocrine Surgical History: Reports: None Neurological Surgical History: Reports: None Musculoskeletal Surgical History: Reports: None Social & Family History - Family History Family Medical History: Noncontributory - Tobacco Use Smoking Status *Q: Current Every Day Smoker Years of Tobacco use: 7 Packs/Tins Daily: 0.5 Used Tobacco, but Quit: No Month Tobacco Last Used: SEPTEMBER Second Hand Smoke Exposure: No - Caffeine Use Caffeine Use: Reports: Coffee - Alcohol Use Days Per Week of Alcohol Use: 1 Number of Drinks Per Day: 2 Total Drinks Per Week: 2 - Recreational Drug Use Recreational Drug Use: No Drug Use in Last 12 Months: Yes Recreational Drug Type: Reports: Marijuana/Hashish, Vicodin Recreational Drug Use Frequency: Rarely ED ROS GENERAL - Review of Systems Review Of Systems: See Below Constitutional: Reports: Decreased Appetite. Denies: Fever, Chills HEENT: Reports: No Symptoms Respiratory: Reports: No Symptoms Cardiovascular: Reports: No Symptoms GI/Abdominal: Reports: Abdominal Pain, Decreased Appetite, Nausea (with increased pain, denies now). Denies: Black Stool, Bloody Stool, Constipation, Diarrhea, Distension, Vomiting : Reports: No Symptoms Musculoskeletal: Reports: No Symptoms Skin: Reports: No Symptoms Neurological: Reports: No Symptoms ED EXAM, GI/ABD - Physical Exam Exam: See Below Exam Limited By: No Limitations General Appearance: Alert, Moderate Distress Ears: Normal External Exam Nose: Normal Inspection Throat/Mouth: Normal Inspection, Normal Oropharynx Neck: Normal Inspection, Supple Respiratory/Chest: No Respiratory Distress, Lungs Clear, Chest Non-Tender Cardiovascular: Normal Peripheral Pulses, Regular Rate, Rhythm, No Murmur GI/Abdominal Exam: Normal Bowel Sounds, Soft, Guarding (over right lower abdomen ). No: Rigid, Rebound, Mass Back Exam: Normal Inspection, Full Range of Motion Extremities: Normal Inspection, Normal Range of Motion Neurological: Alert, Oriented Psychiatric: Normal Affect, Other (worried) Skin Exam: Warm, Dry, Tattoo(s) (multiple) Lymphatic: No Adenopathy Course - Vital Signs Last Recorded V/S: Last Vital Signs Temp 36.9 C 02/27/17 21:50 Pulse 79 02/27/17 21:50 Resp 16 02/27/17 21:50 BP 122/62 02/27/17 21:50 Pulse Ox 97 02/27/17 21:50 - Orders/Labs/Meds Orders: Active Orders 24 hr Category Date Time Status Peripheral IV Care [RC] . DIRECTED Care 02/27/17 22:13 Active Abdomen Pelvis w Cont [CT] Urgent Exams 02/27/17 22:11 Taken HYDROmorphone [Dilaudid] Med 02/27/17 22:15 Active 0.5 mg IVPUSH Q1H PRN Iopamidol [Isovue-300 (61%)] Med 02/27/17 22:45 Active 100 ml IV . DIRECTED Sodium Chloride 0.9% [Normal Saline] 1,000 ml Med 02/27/17 22:11 Active IV .BOLUS Sodium Chloride 0.9% [Normal Saline] 80 ml Med 02/27/17 22:45 Active IV ASDIRECTED Sodium Chloride 0.9% [Saline Flush] Med 02/27/17 22:11 Active 10 ml FLUSH ASDIRECTED PRN ED Pain Medications Reflex [OM.PC] Click to Edit Oth 02/27/17 22:11 Ordered Peripheral IV Insertion Adult [OM.PC] Urgent Oth 02/27/17 22:11 Ordered Medication Orders Hydromorphone HCl (Dilaudid) 0.5 mg IVPUSH Q1H PRN PRN Reason: Abdominal Pain Last Admin: 02/27/17 22:34 Dose: 0.5 mg Sodium Chloride (Normal Saline) 1,000 mls @ 500 mls/hr IV .BOLUS STA Stop: 02/28/17 00:10 Last Admin: 02/27/17 22:33 Dose: 500 mls/hr Sodium Chloride (Normal Saline) 80 mls @ 3 mls/sec IV ASDIRECTED CATALINO Last Admin: 02/27/17 22:47 Dose: 3 mls/sec Iopamidol (Isovue-300 (61%)) 100 ml IV . DIRECTED CATALINO Last Admin: 02/27/17 22:47 Dose: 100 ml Sodium Chloride (Saline Flush) 10 ml FLUSH ASDIRECTED PRN PRN Reason: Keep Vein Open Last Admin: 02/27/17 22:47 Dose: 10 ml Admin: 02/27/17 22:25 Dose: 10 ml Labs: Laboratory Tests 02/27/17 02/27/17 02/27/17 Range/Units 22:25 22:25 22:31 WBC 8.9 (4.5-11.0) K/uL RBC 3.75 (3.30-5.50) M/uL Hgb 11.2 L (12.0-15.0) g/dL Hct 34.2 L (36.0-48.0) % MCV 91 (80-98) fL MCH 30 (27-31) pg MCHC 33 (32-36) % Plt Count 331 (150-400) K/uL Neut % (Auto) 47 (36-66) % Lymph % (Auto) 38 (24-44) % [place] % (Auto) 13 H (2-6) % Eos % (Auto) 2 (2-4) % Baso % (Auto) 1 (0-1) % Sodium 137 L (140-148) mmol/L Potassium 4.0 (3.6-5.2) mmol/L Chloride 103 (100-108) mmol/L Carbon Dioxide 28 (21-32) mmol/L Anion Gap 10.0 (5.0-14.0) mmol/L BUN 12 D (7-18) mg/dL Creatinine 0.9 (0.6-1.0) mg/dL Est Cr Clr Drug Dosing 69.60 mL/min Estimated GFR (MDRD) > 60 (>60) Glucose 96 (74-106) mg/dL Calcium 9.7 (8.5-10.1) mg/dL Total Bilirubin 0.2 (0.2-1.0) mg/dL AST 26 (15-37) U/L ALT 73 D (12-78) U/L Alkaline Phosphatase 133 H (46-116) U/L C-Reactive Protein 1.29 H (0.0-0.3) mg/dL Total Protein 7.3 (6.4-8.2) g/dL Albumin 3.4 (3.4-5.0) g/dL Globulin 3.9 H (2.3-3.5) g/dL Albumin/Globulin Ratio 0.9 L (1.2-2.2) Urine Color Yellow Urine Appearance Slightly cloudy Urine pH 7.0 (4.5-8.0) Ur Specific [place] 1.020 (1.008-1.030) Urine Protein Negative (NEGATIVE) mg/dL Urine Glucose (UA) Normal (NEGATIVE) mg/dL Urine Ketones Negative (NEGATIVE) mg/dL Urine Occult Blood Negative (NEGATIVE) Urine Nitrite Negative (NEGATIVE) Urine Bilirubin Negative (NEGATIVE) Urine Urobilinogen Normal (NORMAL) mg/dL Ur Leukocyte Esterase Negative (NEGATIVE) Urine RBC 0-5 (0-5) Urine WBC 0-5 (0-5) Ur Epithelial Cells Moderate Amorphous Sediment Not seen Urine Bacteria Few Urine Mucus Not seen Meds: Medications Generic Name Dose Route Start Last Admin Trade Name Freq PRN Reason Stop Dose Admin Hydromorphone HCl 0.5 mg 02/27/17 22:15 02/27/17 22:34 Dilaudid IVPUSH 0.5 mg Q1H PRN Administration Abdominal Pain Sodium Chloride 1,000 mls @ 500 mls/hr 02/27/17 22:11 02/27/17 22:33 Normal Saline IV 02/28/17 00:10 500 mls/hr .BOLUS STA Administration Sodium Chloride 80 mls @ 3 mls/sec 02/27/17 22:45 02/27/17 22:47 Normal Saline IV 3 mls/sec ASDIRECTED CATALINO Administration Iopamidol 100 ml 02/27/17 22:45 02/27/17 22:47 Isovue-300 (61%) IV 100 ml . DIRECTED CATALINO Administration Sodium Chloride 10 ml 02/27/17 22:11 02/27/17 22:47 Saline Flush FLUSH 10 ml ASDIRECTED PRN Administration Keep Vein Open - Re-Assessments/Exams Free Text/Narrative Re-Assessment/Exam: 02/27/17 22:34 seen shortly after arrival with increase in her abdominal pain since stopping her oxycodone. IV fluids were ordered, IV hydromorphone was given for pain and labs and Abd/pelvic CT were ordered Free Text/Narrative Re-Assessment/Exam: 02/27/17 23:38 Labwork came back with a normal CBC and basically normal CMP. UA was normal and CT scan on the pelvis, showed similar findings as before with lymph node swelling in the right pelvis with some surrounding inflammatory changes. her pain improved after fluids and IV hydromophone and she was comfortable in going home Departure - Departure Time of Disposition: 23:40 Disposition: Home, Self-Care 01 Clinical Impression: Swelling of lymph nodes, Pelvic pain, Right lower quadrant abdominal pain - Discharge Information Referrals: Adelina Canales NP [Primary Care Provider] - Forms: ED Department Discharge Additional Instructions: will discharge with some Percocet from the [facility] machine, #10 tabs with a written rx for oxycodone to be filled later. Plan on seeing your physician this coming week - My Orders Last 24 Hours: My Active Orders 02/27/17 22:11 Abdomen Pelvis w Cont [CT] Urgent Sodium Chloride 0.9% [Normal Saline] 1,000 ml IV .BOLUS Sodium Chloride 0.9% [Saline Flush] 10 ml FLUSH ASDIRECTED PRN ED Pain Medications Reflex [OM.PC] Click to Edit Peripheral IV Insertion Adult [OM.PC] Urgent 02/27/17 22:13 Peripheral IV Care [RC] . DIRECTED 02/27/17 22:15 HYDROmorphone [Dilaudid] 0.5 mg IVPUSH Q1H PRN 02/27/17 22:45 Iopamidol [Isovue-300 (61%)] 100 ml IV . DIRECTED Sodium Chloride 0.9% [Normal Saline] 80 ml IV ASDIRECTED - Assessment/Plan Last 24 Hours: My Active Orders 02/27/17 22:11 Abdomen Pelvis w Cont [CT] Urgent Sodium Chloride 0.9% [Normal Saline] 1,000 ml IV .BOLUS Sodium Chloride 0.9% [Saline Flush] 10 ml FLUSH ASDIRECTED PRN ED Pain Medications Reflex [OM.PC] Click to Edit Peripheral IV Insertion Adult [OM.PC] Urgent 02/27/17 22:13 Peripheral IV Care [RC] . DIRECTED 02/27/17 22:15 HYDROmorphone [Dilaudid] 0.5 mg IVPUSH Q1H PRN 02/27/17 22:45 Iopamidol [Isovue-300 (61%)] 100 ml IV . DIRECTED Sodium Chloride 0.9% [Normal Saline] 80 ml IV ASDIRECTED Assessment:: 31 right lower quadrant pain, that worsened today after running out of her pain meds. Re-evaluation in the ED is not showing any new findings with a normal CBC , CMP and CT not showing any progression of disease with persistent swelling in the right pelvic nodes with some surrounding inflammation Plan: Will discharge to home and will refill her prescription for oxycodone and overnite an rx was sent to the [facility] machine for percocet. She has a planned follow-up with her provider in clinic this coming week.
[2017-02-27] MEDS ORDERED: Iopamidol 612 MG/ML 100 ML Bottle IV SCH (22:45)
[2017-02-27] MEDS ORDERED: Sodium Chloride 0.9% 80 ML IV SCH (22:45)
== END 2017-02-28 00:04 | disposition home or self-care (01) ==
LOC: JP.ED 21:13
DX: R10.31 Right lower quadrant pain (principal); R59.9 Enlarged lymph nodes, unspecified; R10.2 Pelvic and perineal pain; F17.210 Nicotine dependence, cigarettes, uncomplicated; Z90.49 Acquired absence of other specified parts of digestive tract; Z98.890 Other specified postprocedural states; J45.909 Unspecified asthma, uncomplicated; Z79.899 Other long term (current) drug therapy; Z88.2 Allergy status to sulfonamides; Z91.040 Latex allergy status; Z88.8 Allergy status to other drugs, medicaments and biological substances; Z88.6 Allergy status to analgesic agent; Z91.09 Other allergy status, other than to drugs and biological substances
CPT/HCPCS: 36415; 74177; 80053; 81001; 85025; 86140; 96361; 96374; 99284; J1170; J7030; J7040; J7050; Q9967

== ENCOUNTER 2017-12-28 15:31 | Emergency (ER) | payer MEDICAID ==
[2017-12-28 16:11] VITALS: BP 109/72
[2017-12-28] MEDS ORDERED: Ondansetron 4 MG Tab.DIS PO ONE (17:17)
[2017-12-28] MEDS ORDERED: Ketorolac 60 MG/2 ML SDV IM ONE (17:17)
--- NOTE | 2017-12-28 18:14 | EDM.PDOC ---
ED HPI GENERAL MEDICAL PROBLEM - General Chief Complaint: Headache Stated Complaint: HEADACHE Time Seen by Provider: 12/28/17 16:30 Source of Information: Reports: Patient History Limitations: Reports: No Limitations - History of Present Illness INITIAL COMMENTS - FREE TEXT/NARRATIVE: 32-year-old female with a recurring headache for the past week. Tylenol seem to help initially but hasn't been helping over the past 2 days. She has no shortness of breath, fevers or chills, nasal drainage but she thinks it may have something to do with the smoke in the air. She does have a history of migraines but one has never lasted this long. Onset: Gradual Duration: Day(s): (5-7 days) Associated Symptoms: Reports: Other (Mild nausea, mild photophobia) Headache Pain Score (Numeric/FACES): 6 - Related Data Allergies Allergy/AdvReac Type Severity Reaction Status Date / Time adhesive tape Allergy Rash Verified 12/28/17 16:13 buprenorphine Allergy Nausea Verified 12/28/17 16:13 citric acid Allergy Acid Reflux Verified 12/28/17 16:13 latex Allergy Hives Verified 12/28/17 16:13 Sulfa (Sulfonamide Allergy Hives Verified 12/28/17 16:13 Antibiotics) topiramate [From Topamax] Allergy Nausea Verified 12/28/17 16:13 amitriptyline AdvReac Disorientat Verified 12/28/17 16:13 ion ketorolac [From Toradol] AdvReac Nausea Verified 12/28/17 16:13 Home Meds: Home Meds Levothyroxine 175 mcg PO DAILY 02/05/13 [History] Albuterol Sulfate [Proair Hfa] 1 - 2 puff IH Q4HR PRN 03/31/15 [History] Calcium Carbonate/Vitamin D3 [Calcium Carb 500 MG] 500 mg PO ASDIRECTED PRN [History] Ranitidine HCl [Ranitidine] 150 mg PO BID PRN 10/02/16 [History] ALPRAZolam [Alprazolam] 0.5 mg PO BEDTIME 12/28/17 [History] lamoTRIgine [Lamotrigine] 100 mg PO BEDTIME 12/28/17 [History] Past Medical History HEENT History: Reports: Impaired Vision Cardiovascular History: Reports: Other (See Below) Other Cardiovascular History: heart palpitation Respiratory History: Reports: Asthma Other Respiratory History: EXERCISE INDUCED ASTHMA Gastrointestinal History: Reports: Gastritis, GERD Genitourinary History: Reports: Other (See Below) Other Genitourinary History: cervical dysplagia 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 Endocrine/Metabolic History: Reports: Hypothyroidism Hematologic History: Reports: Anemia, B12 Deficiency, Blood Transfusion(s), Iron Deficiency Immunologic History: Reports: None Oncologic (Cancer) History: Reports: None Dermatologic History: Reports: None - Infectious Disease History Infectious Disease History: Reports: Chicken Pox - Past Surgical History Head Surgeries/Procedures: Reports: None HEENT Surgical History: Reports: None Cardiovascular Surgical History: Reports: None Respiratory Surgical History: Reports: None GI Surgical History: Reports: Appendectomy, Cholecystectomy Female Surgical History: Reports: Tubal Ligation, Other (See Below) Other Female Surgeries/Procedures: cervical biopsy = dysplasia Endocrine Surgical History: Reports: None Neurological Surgical History: Reports: None Musculoskeletal Surgical History: Reports: None Social & Family History - Family History Family Medical History: Noncontributory - Tobacco Use Smoking Status *Q: Current Every Day Smoker Years of Tobacco use: 8 Packs/Tins Daily: 0.5 - Caffeine Use Caffeine Use: Reports: Coffee - Recreational Drug Use Recreational Drug Use: No ED ROS GENERAL - Review of Systems Review Of Systems: See Below Constitutional: Denies: Fever, Chills, Malaise HEENT: Reports: Other (Photophobia) Respiratory: Denies: Shortness of Breath Cardiovascular: Denies: Chest Pain GI/Abdominal: Reports: Nausea. Denies: Abdominal Pain, Vomiting Musculoskeletal: Reports: No Symptoms Skin: Reports: No Symptoms Neurological: Reports: Headache - Physical Exam Exam: See Below Exam Limited By: No Limitations General Appearance: Alert, No Apparent Distress Eye Exam: Bilateral Eye: Normal Inspection Head Exam: Atraumatic. No: Sinus Tenderness Neck: Supple, Non-Tender Respiratory/Chest: No Respiratory Distress Neuro Exam (Abbreviated): Alert, Oriented, No Motor/Sensory Deficits Psychiatric: Normal Affect, Normal Mood Skin Exam: Warm, Dry Course - Vital Signs Last Recorded V/S: Last Vital Signs Temp 95.7 F 12/28/17 16:13 Pulse 78 12/28/17 16:13 Resp 16 12/28/17 16:13 BP 109/72 12/28/17 16:13 Pulse Ox 99 12/28/17 16:13 - Orders/Labs/Meds Meds: Medications Discontinued Medications Generic Name Dose Route Start Last Admin Trade Name Elton PRN Reason Stop Dose Admin Ketorolac Tromethamine 60 mg 12/28/17 17:17 12/28/17 17:44 Toradol IM 12/28/17 17:18 60 mg ONETIME ONE Administration Ondansetron HCl 4 mg 12/28/17 17:17 12/28/17 17:43 Zofran Odt PO 12/28/17 17:18 4 mg ONETIME ONE Administration - Re-Assessments/Exams Free Text/Narrative Re-Assessment/Exam: 12/28/17 18:13 60 mg of IM Toradol along with 4 mg of sublingual Zofran was given. After half an hour the patient had moderate improvement. She was placed on 40 mg of prednisone daily for the next 3-6 days. She can return if worsening such as fever or not improving satisfactorily. Departure - Departure Time of Disposition: 18:36 Disposition: Home, Self-Care 01 Condition: Good Clinical Impression: Headache Qualifiers: Headache type: unspecified Headache chronicity pattern: episodic headache Intractability: not intractable Qualified Code(s): R51 - Headache - Discharge Information Instructions: General Headache Without Cause Referrals: Thalia Moran RN [Primary Care Provider] - Forms: ED Department Discharge Care Plan Goals: Take 4 pills of prednisone daily for the next 3-6 days. Recheck if not improving satisfactorily. Return sooner if worsening such as fever, visual changes or neurologic concerns as discussed.
== END 2017-12-28 18:36 | disposition home or self-care (01) ==
LOC: JP.ED 15:31
DX: R51 Headache (principal); F17.210 Nicotine dependence, cigarettes, uncomplicated; E03.9 Hypothyroidism, unspecified; Z79.899 Other long term (current) drug therapy
CPT/HCPCS: 96372; 99284; A9270; J1885

== ENCOUNTER 2017-12-29 20:36 | Emergency (ER) | payer MEDICAID ==
[2017-12-29] MEDS ORDERED: Ketorolac 30 MG/ML SDV IVPUSH ONE (22:06)
[2017-12-29] MEDS ORDERED: methylPREDNISolone Sodium Succinate 125 MG/2 ML SDV IVPUSH ONE (22:06)
[2017-12-29] MEDS ORDERED: Ondansetron 4 MG/2 ML SDV IVPUSH ONE (22:06)
--- NOTE | 2017-12-29 22:13 | EDM.PDOC ---
ED HPI GENERAL MEDICAL PROBLEM - General Chief Complaint: Headache Stated Complaint: HEADACHE Time Seen by Provider: 12/29/17 21:21 Source of Information: Reports: Patient History Limitations: Reports: No Limitations - History of Present Illness INITIAL COMMENTS - FREE TEXT/NARRATIVE: Frontal headache for 2 days, getting worse. this is a 32 year old female presents to ER with and 12 year old son. She reports was seen in ER yesterday given treatment, felt better, but now headache is back, generalized not feeling well. this is making her anxiety/panic disorder worse. denies fever, chills, neck pain, nausea, vomiting. menses started today. no rash Onset: Gradual Duration: Day(s): ("a few days") Location: Reports: Head (forehead headache), Face (frontal sinus area painful) Quality: Reports: Stabbing, Throbbing Severity: Moderate Improves with: Reports: None Worsens with: Reports: None Associated Symptoms: Reports: Headaches Treatments DATA SCIENTIST: Reports: Acetaminophen, NSAIDS Middle Frontal Headache Pain Score (Numeric/FACES): 7 - Related Data Allergies Allergy/AdvReac Type Severity Reaction Status Date / Time adhesive tape Allergy Rash Verified 12/28/17 16:13 latex Allergy Hives Verified 12/28/17 16:13 Sulfa (Sulfonamide Allergy Hives Verified 12/28/17 16:13 Antibiotics) amitriptyline AdvReac Disorientat Verified 12/28/17 16:13 ion buprenorphine AdvReac Nausea Verified 12/29/17 08:09 citric acid AdvReac Acid Reflux Verified 12/29/17 08:09 ketorolac [From Toradol] AdvReac Nausea Verified 12/28/17 16:13 topiramate [From Topamax] AdvReac Nausea Verified 12/29/17 08:09 Home Meds: Home Meds RX: Levothyroxine 175 mcg PO DAILY 02/05/13 [History] RX: Albuterol Sulfate [Proair Hfa] 1 - 2 puff IH Q4HR PRN 03/31/15 [History] RX: Calcium Carbonate/Vitamin D3 [Calcium Carb 500 MG] 500 mg PO ASDIRECTED PRN 10/02/16 [History] RX: Ranitidine HCl [Ranitidine] 150 mg PO BID PRN 10/02/16 [History] ALPRAZolam [Alprazolam] 0.5 mg PO BEDTIME 12/28/17 [History] lamoTRIgine [Lamotrigine] 100 mg PO BEDTIME 12/28/17 [History] Past Medical History HEENT History: Reports: Impaired Vision Cardiovascular History: Reports: Other (See Below) Other Cardiovascular History: heart palpitation Respiratory History: Reports: Asthma Other Respiratory History: EXERCISE INDUCED ASTHMA Gastrointestinal History: Reports: Gastritis, GERD Genitourinary History: Reports: Other (See Below) Other Genitourinary History: cervical dysplagia 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 borderline personality disorder Endocrine/Metabolic History: Reports: Hypothyroidism Hematologic History: Reports: Anemia, B12 Deficiency, Blood Transfusion(s), Iron Deficiency Immunologic History: Reports: None Oncologic (Cancer) History: Reports: None Dermatologic History: Reports: None - Infectious Disease History Infectious Disease History: Reports: Chicken Pox - Past Surgical History Head Surgeries/Procedures: Reports: None HEENT Surgical History: Reports: None Cardiovascular Surgical History: Reports: None Respiratory Surgical History: Reports: None GI Surgical History: Reports: Appendectomy, Cholecystectomy Female Surgical History: Reports: Tubal Ligation, Other (See Below) Other Female Surgeries/Procedures: cervical biopsy = dysplasia Endocrine Surgical History: Reports: None Neurological Surgical History: Reports: None Musculoskeletal Surgical History: Reports: None Social & Family History - Family History Family Medical History: Noncontributory - Tobacco Use Smoking Status *Q: Current Every Day Smoker Years of Tobacco use: 9 Packs/Tins Daily: 0.5 - Caffeine Use Caffeine Use: Reports: Coffee - Recreational Drug Use Recreational Drug Use: No - Living Situation & Occupation Living situation: Reports: Occupation: Disabled (lives with and 3 children. 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.) ED ROS GENERAL - Review of Systems Review Of Systems: See Below Constitutional: Reports: Fatigue HEENT: Reports: Sinus Problem Respiratory: Reports: No Symptoms Cardiovascular: Reports: No Symptoms Endocrine: Reports: No Symptoms GI/Abdominal: Reports: No Symptoms : Reports: No Symptoms Musculoskeletal: Reports: No Symptoms Skin: Reports: No Symptoms Neurological: Reports: Headache (frontal headache for 24 hours.) Psychiatric: Reports: Anxiety Hematologic/Lymphatic: Reports: No Symptoms Immunologic: Reports: No Symptoms ED EXAM, GENERAL - Physical Exam Exam: See Below Exam Limited By: No Limitations General Appearance: Alert, WD/WN, Anxious, Mild Distress, Thin Eye Exam: Bilateral Eye: EOMI, Normal Inspection, PERRL Ears: Normal External Exam, Normal Canal Ear Exam: Right Ear: Erythema, Tenderness, TM Red, TM Bulging, Left Ear: TM normal Nose: Other (nares; turbinates mildly injected) Throat/Mouth: Normal Inspection, Normal Lips, Normal Teeth, Normal Gums, Normal Oropharynx, Normal Voice, No Airway Compromise Head: Atraumatic, Normocephalic, Sinus Tenderness (frontal and maxillary pain and pressure) Neck: Normal Inspection, Supple, Non-Tender, Full Range of Motion Respiratory/Chest: No Respiratory Distress, Lungs Clear, Normal Breath Sounds, No Accessory Muscle Use, Chest Non-Tender Cardiovascular: Normal Peripheral Pulses, Regular Rate, Rhythm, No Edema, No Gallop, No JVD, No Murmur, No Rub GI/Abdominal: Normal Bowel Sounds, Soft, Non-Tender Back Exam: Normal Inspection, Full Range of Motion Extremities: Normal Inspection, Normal Range of Motion, Non-Tender, No Pedal Edema, Normal Capillary Refill Neurological: Alert, Oriented, No Motor/Sensory Deficits Psychiatric: Normal Affect, Anxious, Tearful Skin Exam: Warm, Dry, Intact, Normal Color Lymphatic: No Adenopathy Course - Vital Signs Last Recorded V/S: Last Vital Signs Temp 36.1 C 12/29/17 21:40 Pulse 62 12/30/17 00:05 Resp 14 12/30/17 00:05 BP 103/71 12/30/17 00:05 Pulse Ox 99 12/30/17 00:05 - Orders/Labs/Meds Meds: Medications Discontinued Medications Generic Name Dose Route Start Last Admin Trade Name Freq PRN Reason Stop Dose Admin Hydromorphone HCl 1 mg 12/29/17 23:33 12/29/17 23:43 Dilaudid IVPUSH 12/29/17 23:34 1 mg ONETIME ONE Administration Ceftriaxone Sodium 1 gm/ 50 mls @ 100 mls/hr 12/29/17 22:15 12/29/17 22:49 Sodium Chloride IV 100 mls/hr Q24H CATALINO Administration Sodium Chloride 1,000 mls @ 999 mls/hr 12/29/17 22:15 12/29/17 22:46 Normal Saline IV 999 mls/hr ASDIRECTED CATALINO Administration Ketorolac Tromethamine 30 mg 12/29/17 22:06 12/29/17 22:50 Toradol IVPUSH 12/29/17 22:07 30 mg ONETIME ONE Administration Methylprednisolone Sodium Succinate 125 mg 12/29/17 22:06 12/29/17 22:55 Solu-Medrol IVPUSH 12/29/17 22:07 125 mg ONETIME ONE Administration Ondansetron HCl 4 mg 12/29/17 22:06 12/29/17 22:53 Zofran IVPUSH 12/29/17 22:07 4 mg ONETIME ONE Administration - Re-Assessments/Exams Free Text/Narrative Re-Assessment/Exam: 12/29/17 23:47 discussed sinus and ear infection with sinus headache. will give medications in ER to reduce headache , and Mrs. Starr agree with plan of care Normal saline 1 liter Zofran 4mg iv solumedrol 125mg iv Toradol 30 mg iv Rocephin 1 gram iv for otitis media Ms. Starr still report headache not completely resolved, now with anxiety over headache will give Dilaudid 1 mg IV and reassess. Departure - Departure Time of Disposition: 00:25 Disposition: Home, Self-Care 01 Clinical Impression: Sinus headache Otitis media of right ear Qualifiers: Chronicity: acute Recurrence: not specified as recurrent Spontaneous tympanic membrane rupture: without spontaneous rupture - Discharge Information *PRESCRIPTION DRUG MONITORING PROGRAM REVIEWED*: No *COPY OF PRESCRIPTION DRUG MONITORING REPORT IN PATIENT JANET: No Instructions: Otitis Media, Adult, [id number], Sinus Headache Referrals: Thalia Moran RN [Primary Care Provider] - Forms: ED Department Discharge Care Plan Goals: Sinus Headache, right ear infection -antibiotic -rest -push fluids -follow up in Primary Care for recheck -Return to ER if not improved or symptoms worsen. - Problem List & Annotations (1) Otitis media of right ear SNOMED Code(s): 28626254 Code(s): H66.91 - OTITIS MEDIA, UNSPECIFIED, RIGHT EAR Status: Acute Priority: High Qualifiers: Chronicity: acute Recurrence: not specified as recurrent Spontaneous tympanic membrane rupture: without spontaneous rupture (2) Sinus headache SNOMED Code(s): 7595025 Code(s): R51 - HEADACHE Status: Acute Priority: High - Problem List Review Problem List Initiated/Reviewed/Updated: Yes - Assessment/Plan Plan: Sinus Headache, right ear infection -antibiotic -medicate for pain -rest -push fluids -follow up in Primary Care for recheck -Return to ER if not improved or symptoms worsen.
[2017-12-29] MEDS ORDERED: cefTRIAXone 1 GM in Sodium Chloride 0.9% 50 ML IV SCH (22:15)
[2017-12-29] MEDS ORDERED: Sodium Chloride 0.9% 1,000 ML IV SCH (22:15)
[2017-12-29] MEDS ORDERED: HYDROmorphone 1 MG/ML Syringe IVPUSH ONE (23:33)
[2017-12-30 00:31] VITALS: BP 103/71
== END 2017-12-30 00:25 | disposition home or self-care (01) ==
LOC: JP.ED 20:36
DX: H66.91 Otitis media, unspecified, right ear (principal); F17.210 Nicotine dependence, cigarettes, uncomplicated; E03.9 Hypothyroidism, unspecified; Z79.899 Other long term (current) drug therapy; Z88.5 Allergy status to narcotic agent; Z88.2 Allergy status to sulfonamides; Z91.040 Latex allergy status; Z91.09 Other allergy status, other than to drugs and biological substances
CPT/HCPCS: 96365; 96375; 99284; J0696; J1170; J1885; J2405; J2930; J7030; J7050

== ENCOUNTER 2018-01-07 21:50 | Emergency (ER) | payer MEDICAID ==
[2018-01-07 22:21] VITALS: BP 126/89
[2018-01-07] MEDS ORDERED: Sodium Chloride 0.9% 1,000 ML IV SCH (22:45)
[2018-01-07] MEDS ORDERED: Ondansetron 4 MG/2 ML SDV IVPUSH ONE (22:45)
[2018-01-07] MEDS ORDERED: HYDROmorphone 1 MG/ML Syringe IVPUSH ONE (22:45)
--- NOTE | 2018-01-07 22:52 | EDM.PDOC ---
ED HPI GENERAL MEDICAL PROBLEM - General Chief Complaint: General Stated Complaint: ILLNESS Time Seen by Provider: 01/07/18 22:00 Source of Information: Reports: Patient, Family ( and Father in attendance) History Limitations: Reports: Other (headache) - History of Present Illness INITIAL COMMENTS - FREE TEXT/NARRATIVE: Migraine Headache; this is a 32 year old female presents to ER with family, concerns of intermittent headache for the past 2 weeks. her anxiety has been high as she has concerns of brain cancer, her Mom has brain cancer. Today, she is light sensitive, frontal headache, nausea, vomiting, only ate a piece of cookie today. 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: Reports: Acetaminophen, NSAIDS Headache Pain Score (Numeric/FACES): 9 - Related Data Allergies Allergy/AdvReac Type Severity Reaction Status Date / Time adhesive tape Allergy Rash Verified 01/07/18 22:21 latex Allergy Hives Verified 01/07/18 22:21 Sulfa (Sulfonamide Allergy Hives Verified 01/07/18 22:21 Antibiotics) amitriptyline AdvReac Disorientat Verified 01/07/18 22:21 ion buprenorphine AdvReac Nausea Verified 01/07/18 22:21 citric acid AdvReac Acid Reflux Verified 01/07/18 22:21 ketorolac [From Toradol] AdvReac Nausea Verified 01/07/18 22:21 topiramate [From Topamax] AdvReac Nausea Verified 01/07/18 22:21 Home Meds: Home Meds Levothyroxine 175 mcg PO DAILY 02/05/13 [History] Albuterol Sulfate [Proair Hfa] 1 - 2 puff IH Q4HR PRN 03/31/15 [History] Calcium Carbonate/Vitamin D3 [Calcium Carb 500 MG] 500 mg PO ASDIRECTED PRN [History] Ranitidine HCl [Ranitidine] 150 mg PO BID PRN 10/02/16 [History] ALPRAZolam [Alprazolam] 0.5 mg PO BEDTIME 12/28/17 [History] lamoTRIgine [Lamotrigine] 100 mg PO BEDTIME 12/28/17 [History] Doxycycline [Vibramycin] 100 cap PO BID 01/07/18 [History] Past Medical History HEENT History: Reports: Impaired Vision Cardiovascular History: Reports: Other (See Below) Other Cardiovascular History: heart palpitation Respiratory History: Reports: Asthma Other Respiratory History: EXERCISE INDUCED ASTHMA Gastrointestinal History: Reports: Gastritis, GERD Genitourinary History: Reports: Other (See Below) Other Genitourinary History: cervical dysplagia FACILITIES CUSTODIAN History: Reports: Other FACILITIES CUSTODIAN History: cervical dysplagia Musculoskeletal History: Reports: Back Pain, Chronic, Fracture, Fibromyalgia, Other (See Below) Other Musculoskeletal History: EHLER'S DANLOS SYNDROME Neurological History: Reports: Concussion, Migraines Psychiatric History: Reports: Anxiety, Bipolar, Depression, Mood Swings, Psych Hospitalization(s), Suicide Attempt, Suicidal Ideation, Other (See Below) Other Psychiatric History: last psych hospital last week. borderline personality disorder Endocrine/Metabolic History: Reports: Hypothyroidism Hematologic History: Reports: Anemia, B12 Deficiency, Blood Transfusion(s), Iron Deficiency Immunologic History: Reports: None Oncologic (Cancer) History: Reports: None Dermatologic History: Reports: None - Infectious Disease History Infectious Disease History: Reports: Chicken Pox, Influenza - Past Surgical History Head Surgeries/Procedures: Reports: None HEENT Surgical History: Reports: None Cardiovascular Surgical History: Reports: None Respiratory Surgical History: Reports: None GI Surgical History: Reports: Appendectomy, Cholecystectomy Female Surgical History: Reports: Tubal Ligation, Other (See Below) Other Female Surgeries/Procedures: cervical biopsy = dysplasia Endocrine Surgical History: Reports: None Neurological Surgical History: Reports: None Musculoskeletal Surgical History: Reports: None Social & Family History - Family History Family Medical History: Noncontributory - Tobacco Use Smoking Status *Q: Current Every Day Smoker Years of Tobacco use: 10 Packs/Tins Daily: 0.7 - Caffeine Use Caffeine Use: Reports: Coffee - Recreational Drug Use Recreational Drug Use: No - Living Situation & Occupation Living situation: Reports: Occupation: Disabled (lives with and 3 children. 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.) ED ROS GENERAL - Review of Systems Review Of Systems: See Below Constitutional: Reports: Other (migraine headache) HEENT: Reports: Sinus Problem Respiratory: Reports: No Symptoms Cardiovascular: Reports: No Symptoms Endocrine: Reports: No Symptoms GI/Abdominal: Reports: Decreased Appetite, Nausea, Vomiting : Reports: No Symptoms Musculoskeletal: Reports: No Symptoms Skin: Reports: No Symptoms Neurological: Reports: No Symptoms Psychiatric: Reports: Anxiety Hematologic/Lymphatic: Reports: No Symptoms Immunologic: Reports: No Symptoms ED EXAM, GENERAL - Physical Exam Exam: See Below Exam Limited By: Other (headache;) General Appearance: Anxious, Moderate Distress (laying curled up on exam table in darken room, crying.), Thin Eye Exam: Bilateral Eye: Conjunctival Injection (from crying), PERRL Ears: Normal External Exam, Normal Canal, Hearing Grossly Normal, Normal TMs Ear Exam: Bilateral Ear: Auricle Normal, Canal Normal, TM normal Nose: Nasal Swelling, Clear Rhinorrhea, Other (frontal and maxillary pain and pressure present) Throat/Mouth: Normal Inspection Head: Atraumatic, Normocephalic, Sinus Tenderness Neck: Normal Inspection, Supple, Non-Tender, Full Range of Motion Respiratory/Chest: No Respiratory Distress, Lungs Clear, Normal Breath Sounds, No Accessory Muscle Use, Chest Non-Tender Cardiovascular: Regular Rate, Rhythm, No Murmur Peripheral Pulses: 2+: Radial (L), Radial (R), Dorsalis Pedis (L), Dorsalis Pedis (R) GI/Abdominal: Normal Bowel Sounds, Soft, Non-Tender, No Organomegaly, No Distention, No Abnormal Bruit, No Mass Back Exam: Normal Inspection, Full Range of Motion, NT Extremities: Normal Inspection, Normal Range of Motion, Non-Tender, Normal Capillary Refill, No Pedal Edema Neurological: No Motor/Sensory Deficits Psychiatric: Anxious, Tearful Skin Exam: Warm, Dry, Intact, Normal Color, No Rash Lymphatic: No Adenopathy Course - Vital Signs Last Recorded V/S: Last Vital Signs Temp 35.7 C 01/07/18 22:25 Pulse 84 01/07/18 22:25 Resp 16 01/07/18 22:25 BP 126/89 01/07/18 22:25 Pulse Ox 99 01/07/18 22:25 - Orders/Labs/Meds Meds: Medications Discontinued Medications Generic Name Dose Route Start Last Admin Trade Name Freq PRN Reason Stop Dose Admin Hydromorphone HCl 1 mg 01/07/18 22:45 01/07/18 23:15 Dilaudid IVPUSH 01/07/18 22:46 1 mg ONETIME ONE Administration Sodium Chloride 1,000 mls @ 999 mls/hr 01/07/18 22:45 01/07/18 23:16 Normal Saline IV 999 mls/hr ASDIRECTED CATALINO Administration Ondansetron HCl 4 mg 01/07/18 22:45 01/07/18 23:15 Zofran IVPUSH 01/07/18 22:46 4 mg ONETIME ONE Administration - Re-Assessments/Exams Free Text/Narrative Re-Assessment/Exam: Mrs. Starr was given IV fluids and medications., much improved. able to interact. no longer crying, sitting upright and talkative Head CT without contrast is negative. headache resolved, she will be discharge to home, advised to follow up with Primary Care Provider, given Istymeds for Zofran odt as directed. Departure - Departure Time of Disposition: 00:30 Disposition: Home, Self-Care 01 Condition: Good Clinical Impression: Anaplasmosis, Headache - Discharge Information Instructions: Migraine Headache, [id number], Ehrlichiosis and Anaplasmosis, [id number] Referrals: Thalia Moran, RN [Primary Care Provider] - Forms: ED Department Discharge Care Plan Goals: Anaplasmosis with migraine headache -given IV fluids and medications -discharge to home; rest, push fluids, eat food, take medication as directed by Primary Care Provider -return to Clinic or ER if symptoms return or not improved. - Problem List & Annotations (1) Anaplasmosis SNOMED Code(s): 592509836 Code(s): A77.49 - OTHER EHRLICHIOSIS Status: Acute Priority: High (2) Headache SNOMED Code(s): 07391633 Code(s): R51 - HEADACHE Status: Resolved Priority: High Qualifiers: Headache type: other headache syndrome Qualified Code(s): G44.89 - Other headache syndrome - Problem List Review Problem List Initiated/Reviewed/Updated: Yes - Assessment/Plan Plan: Anaplasmosis with migraine headache -given IV fluids and medications -Head CT negative -discharge to home; rest, push fluids, eat food, take medication as directed by Primary Care Provider -Zofran 4 mg one every 8 hours as needed for nausea. -return to Clinic or ER if symptoms return or not improved.
== END 2018-01-08 00:30 | disposition home or self-care (01) ==
LOC: JP.ED 21:50
DX: A77.49 Other ehrlichiosis (principal); F41.9 Anxiety disorder, unspecified; F17.210 Nicotine dependence, cigarettes, uncomplicated; Z88.2 Allergy status to sulfonamides; Z91.040 Latex allergy status; Z88.5 Allergy status to narcotic agent; Z88.8 Allergy status to other drugs, medicaments and biological substances; Z79.899 Other long term (current) drug therapy; Z91.09 Other allergy status, other than to drugs and biological substances
CPT/HCPCS: 70450; 96361; 96374; 96375; 99284; J1170; J2405; J7030

== ENCOUNTER 2018-09-05 09:30 | Emergency (ER) | payer MEDICAID ==
[2018-09-05] MEDS ORDERED: Sodium Chloride 0.9% 10 ML Syringe FLUSH PRN (12:26)
[2018-09-05] MEDS ORDERED: HYDROmorphone 0.5 MG/0.5 ML Syringe IVPUSH ONE (12:26)
[2018-09-05] MEDS ORDERED: Ondansetron 4 MG/2 ML SDV IVPUSH ONE (12:26)
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
--- NOTE | 2018-09-05 14:06 | CRLCT ---
Pain in left forehead COMPARISON: Head CT 01/07/2018. Findings: Axial noncontrast images through the brain parenchyma demonstrates no acute intracranial hemorrhage or mass. No midline shift. No abnormal extra-axial air or fluid collections. Paranasal sinuses mastoid air cells skull and scalp appear unremarkable. IMPRESSION: No acute intracranial hemorrhage or mass. Please note that all CT scans at this facility use dose modulation, iterative reconstruction, and/or weight-based dosing when appropriate to reduce radiation dose to as low as reasonably achievable. Dictated by Hue Brody MD @ Sep 05 2018 2:02PM Signed by Dr. Hue Brody @ Sep 05 2018 2:05PM
[2018-09-05 14:09] VITALS: BP 122/82
--- NOTE | 2018-09-05 14:13 | CRLCT ---
INDICATION: Neck tenderness. Cervical spine CT scan. Coronal sagittal reformatted images obtained. Findings: Slight reversal of the normal cervical lordosis. Normal height and alignment of the cervical vertebral bodies. No acute fractures. Lateral masses align normally C2. Prevertebral soft tissues are within normal limits. Impression: No acute vertebral body fracture or traumatic malalignment. Please note that all CT scans at this facility use dose modulation, iterative reconstruction, and/or weight-based dosing when appropriate to reduce radiation dose to as low as reasonably achievable. Dictated by Hue Brody MD @ Sep 05 2018 2:07PM Signed by Dr. Hue Brody @ Sep 05 2018 2:11PM
--- NOTE | 2018-09-05 14:13 | CRLCR ---
Pain left hip AP pelvis left hip views. Normal alignment. No hip fractures are seen. Hip joints are preserved. No dislocation. SI joints are unremarkable. Dictated by Hue Brody MD @ Sep 05 2018 2:11PM Signed by Dr. Hue Brody @ Sep 05 2018 2:11PM
[2018-09-05] MEDS ORDERED: Sodium Chloride 0.9% 1,000 ML IV SCH (14:30)
[2018-09-05] MEDS ORDERED: Acetaminophen/HYDROcodone 325-5 MG Tab PO ONE (15:05)
[2018-09-05] MEDS ORDERED: Ondansetron 4 MG Tab.DIS PO ONE (15:06)
== END 2018-09-05 16:15 | disposition home or self-care (01) ==
LOC: JP.ED 09:30
DX: S06.0X9A Concussion with loss of consciousness of unspecified duration, initial encounter (principal); S70.02XA Contusion of left hip, initial encounter; J45.909 Unspecified asthma, uncomplicated; K21.9 Gastro-esophageal reflux disease without esophagitis; F41.9 Anxiety disorder, unspecified; F32.9 Major depressive disorder, single episode, unspecified; F17.210 Nicotine dependence, cigarettes, uncomplicated; Z91.040 Latex allergy status; Z88.2 Allergy status to sulfonamides; Z88.8 Allergy status to other drugs, medicaments and biological substances; Z79.899 Other long term (current) drug therapy; V89.2XXA Person injured in unspecified motor-vehicle accident, traffic, initial encounter
CPT/HCPCS: 36415; 70450; 72125; 73501; 80053; 80305; 81001; 85025; 87086; 96374; 96375; 99284; A9270; G0480; J1170; J2405

== ENCOUNTER 2019-06-12 09:34 | Emergency (ER) | payer MEDICAID ==
[2019-06-12 09:51] VITALS: BP 123/91; PULSE 93
--- NOTE | 2019-06-12 10:36 | EDM.PDOCBH ---
ED HPI GENERAL MEDICAL PROBLEM - General Chief Complaint: Behavioral/Psych Stated Complaint: MENTAL EVAL Time Seen by Provider: 06/12/19 10:00 Source of Information: Reports: Patient History Limitations: Reports: No Limitations - History of Present Illness INITIAL COMMENTS - FREE TEXT/NARRATIVE: 33-year-old female who has been doing daily methamphetamine and not taking her regularly prescribed medications including thyroid medication is here with chronic severe depression. I think she is homeless as well. She is trying to get to [place] to an aunt so also she can establish medical care down there. She has no suicidal plans or intentions at this time but does feel like it is worthless to live anymore. She admits to suicidal ideation "at times", she says it comes and goes. Onset: Unknown/Unsure Associated Symptoms: Reports: Confusion (Intermittent periods of confusion), Other (Intermittent numbness of the right hand). Denies: Chest Pain, Shortness of Breath - Related Data Allergies Allergy/AdvReac Type Severity Reaction Status Date / Time adhesive tape Allergy Rash Verified 06/12/19 09:51 latex Allergy Hives Verified 06/12/19 09:51 Sulfa (Sulfonamide Allergy Hives Verified 06/12/19 09:51 Antibiotics) amitriptyline AdvReac Disorientat Verified 06/12/19 09:51 ion buprenorphine AdvReac Nausea Verified 06/12/19 09:51 citric acid AdvReac Acid Reflux Verified 06/12/19 09:51 ketorolac [From Toradol] AdvReac Nausea Verified 06/12/19 09:51 topiramate [From Topamax] AdvReac Nausea Verified 06/12/19 09:51 Home Meds: Home Meds Levothyroxine 100 mcg PO DAILY 02/05/13 [History] Albuterol Sulfate [Proair Hfa] 1 - 2 puff IH Q4HR PRN 03/31/15 [History] ALPRAZolam [Alprazolam] 1 mg PO BEDTIME 12/28/17 [History] lamoTRIgine [Lamotrigine] 150 mg PO BEDTIME 12/28/17 [History] Past Medical History HEENT History: Reports: Impaired Vision Cardiovascular History: Reports: Other (See Below) Other Cardiovascular History: heart palpitation Respiratory History: Reports: Asthma Other Respiratory History: EXERCISE INDUCED ASTHMA Gastrointestinal History: Reports: Gastritis, GERD Genitourinary History: Reports: Other (See Below) Other Genitourinary History: cervical dysplagia GRAIN SCOOPER History: Reports: Other GRAIN SCOOPER History: cervical dysplagia Musculoskeletal History: Reports: Back Pain, Chronic, Fracture, Fibromyalgia, Other (See Below) Other Musculoskeletal History: EHLER'S DANLOS SYNDROME Neurological History: Reports: Concussion, Migraines Psychiatric History: Reports: Anxiety, Bipolar, Depression, Mood Swings, Psych Hospitalization(s), Suicide Attempt, Suicidal Ideation, Other (See Below) Other Psychiatric History: borderline personality disorder. [facility] was her last mental health place. Endocrine/Metabolic History: Reports: Hypothyroidism Hematologic History: Reports: Anemia, B12 Deficiency, Blood Transfusion(s), Iron Deficiency Immunologic History: Reports: None Oncologic (Cancer) History: Reports: None Dermatologic History: Reports: None - Infectious Disease History Infectious Disease History: Reports: Chicken Pox, Influenza - Past Surgical History Head Surgeries/Procedures: Reports: None GI Surgical History: Reports: Appendectomy, Cholecystectomy Female Surgical History: Reports: Tubal Ligation, Other (See Below) Other Female Surgeries/Procedures: cervical biopsy = dysplasia Social & Family History - Family History Family Medical History: Noncontributory - Tobacco Use Smoking Status *Q: Light Tobacco Smoker Years of Tobacco use: 10 Packs/Tins Daily: 1 - Caffeine Use Caffeine Use: Reports: Coffee Other Caffeine Use: one cup daily - Recreational Drug Use Recreational Drug Use: Yes Recreational Drug Type: Reports: Methamphetamine Recreational Drug Use Frequency: Daily - Living Situation & Occupation Living situation: Reports: Occupation: Disabled (lives with and 3 children. 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.) ED ROS GENERAL - Review of Systems Review Of Systems: See Below Constitutional: Reports: Malaise, Decreased Appetite, Weight Loss. Denies: Fever, Chills Respiratory: Denies: Shortness of Breath, Cough Cardiovascular: Denies: Chest Pain, Palpitations GI/Abdominal: Reports: Nausea (Intermittent nausea, denies vomiting) Skin: Reports: No Symptoms Neurological: Reports: Headache (Intermittent headaches) Psychiatric: Reports: Depression Free Text/Narrative/Comment: Patient checked a urine 1 week ago because her periods have been irregular, and it was "positive" but she has had a tubal ligation. ED EXAM, BEHAVIORAL HEALTH - Physical Exam Exam: See Below Exam Limited By: No Limitations General Appearance: Alert, No Apparent Distress Eye Exam: Bilateral Eye: Normal Inspection (Well-hydrated, tearful, no jaundice) Head: Atraumatic Respiratory/Chest: No Respiratory Distress, Lungs Clear Cardiovascular: Regular Rate, Rhythm. No: Tachycardia GI/Abdominal: Non-Tender Extremities: Other (Extremities are thin, no edema) Neurological: Alert, No Motor/Sensory Deficits, Oriented x 3, Abnormal Reflexes (diffusely hyporeflexic). No: Normal Reflexes Psychiatric: Depressed Mood, Flat Affect, Tearful Skin Exam: Warm, Dry COURSE, BEHAVIORAL HEALTH COMP - Course Vital Signs: Last Vital Signs Temp 96.8 F 06/12/19 09:45 Pulse 93 06/12/19 09:45 Resp 16 06/12/19 09:45 BP 123/91 H 06/12/19 09:45 Pulse Ox 100 06/12/19 09:45 Orders, Labs, Meds: Active Orders 24 hr Category Date Time Status CULTURE URINE [RM] Stat Lab 06/12/19 11:48 Received Laboratory Tests 06/12/19 06/12/19 06/12/19 Range/Units 10:42 10:42 11:24 WBC 6.9 (4.5-11.0) K/uL RBC 3.58 (3.30-5.50) M/uL Hgb 12.2 (12.0-15.0) g/dL Hct 35.9 L (36.0-48.0) % MCV 100 H (80-98) fL MCH 34 H (27-31) pg MCHC 34 (32-36) % Plt Count 241 (150-400) K/uL Neut % (Auto) 40 (36-66) % Lymph % (Auto) 50 H (24-44) % [place] % (Auto) 9 H (2-6) % Eos % (Auto) 1 L (2-4) % Baso % (Auto) 0 (0-1) % Sodium 142 (140-148) mmol/L Potassium 3.6 (3.6-5.2) mmol/L Chloride 103 (100-108) mmol/L Carbon Dioxide 27 (21-32) mmol/L Anion Gap 11.8 (5.0-14.0) mmol/L BUN 19 H D (7-18) mg/dL Creatinine 1.1 H D (0.6-1.0) mg/dL Est Cr Clr Drug Dosing 50.18 mL/min Estimated GFR (MDRD) 58 L (>60) Glucose 93 (74-106) mg/dL Calcium 9.2 (8.5-10.1) mg/dL Total Bilirubin 0.6 (0.2-1.0) mg/dL AST 37 D (15-37) U/L ALT 71 D (12-78) U/L Alkaline Phosphatase 48 (46-116) U/L Total Protein 7.9 (6.4-8.2) g/dL Albumin 4.7 (3.4-5.0) g/dL Globulin 3.2 (2.3-3.5) g/dL Albumin/Globulin Ratio 1.5 (1.2-2.2) TSH, Ultra Sensitive > 100.000 H (0.358-3.740) uIU/mL Urine Color (YELLOW) Urine Appearance (CLEAR) Urine pH (5.0-8.0) Ur Specific [place] (1.008-1.030) Urine Protein (NEGATIVE) mg/dL Urine Glucose (UA) (NEGATIVE) mg/dL Urine Ketones (NEGATIVE) mg/dL Urine Occult Blood (NEGATIVE) Urine Nitrite (NEGATIVE) Urine Bilirubin (NEGATIVE) Urine Urobilinogen (0.2-1.0) EU/dL Ur Leukocyte Esterase (NEGATIVE) Urine RBC (0-5) Urine WBC (0-5) Ur Epithelial Cells Amorphous Sediment Urine Bacteria Urine Mucus Urine HCG, Qual Urine Opiates Screen Negative (NEGATIVE) Ur Oxycodone Screen Negative (NEGATIVE) Urine Methadone Screen Negative (NEGATIVE) Ur Propoxyphene Screen Negative (NEGATIVE) Ur Barbiturates Screen Negative (NEGATIVE) Ur Tricyclics Screen Negative (NEGATIVE) Ur Phencyclidine Scrn Negative (NEGATIVE) Ur Amphetamine Screen Presumptive positive H (NEGATIVE) U Methamphetamines Scrn Presumptive positive H (NEGATIVE) Urine MDMA Screen Presumptive positive H (NEGATIVE) U Benzodiazepines Scrn Presumptive positive H (NEGATIVE) U Cocaine Metab Screen Negative (NEGATIVE) U Marijuana (THC) Screen Negative (NEGATIVE) 06/12/19 06/12/19 06/12/19 Range/Units 11:24 11:24 13:54 WBC (4.5-11.0) K/uL RBC (3.30-5.50) M/uL Hgb (12.0-15.0) g/dL Hct (36.0-48.0) % MCV (80-98) fL MCH (27-31) pg MCHC (32-36) % Plt Count (150-400) K/uL Neut % (Auto) (36-66) % Lymph % (Auto) (24-44) % [place] % (Auto) (2-6) % Eos % (Auto) (2-4) % Baso % (Auto) (0-1) % Sodium (140-148) mmol/L Potassium (3.6-5.2) mmol/L Chloride (100-108) mmol/L Carbon Dioxide (21-32) mmol/L Anion Gap (5.0-14.0) mmol/L BUN (7-18) mg/dL Creatinine (0.6-1.0) mg/dL Est Cr Clr Drug Dosing mL/min Estimated GFR (MDRD) (>60) Glucose (74-106) mg/dL Calcium (8.5-10.1) mg/dL Total Bilirubin (0.2-1.0) mg/dL AST (15-37) U/L ALT (12-78) U/L Alkaline Phosphatase (46-116) U/L Total Protein (6.4-8.2) g/dL Albumin (3.4-5.0) g/dL Globulin (2.3-3.5) g/dL Albumin/Globulin Ratio (1.2-2.2) TSH, Ultra Sensitive (0.358-3.740) uIU/mL Urine Color Yellow Yellow (YELLOW) Urine Appearance Cloudy A Clear (CLEAR) Urine pH 7.0 7.0 (5.0-8.0) Ur Specific [place] 1.025 >= 1.030 (1.008-1.030) Urine Protein Negative Trace H (NEGATIVE) mg/dL Urine Glucose (UA) Negative Negative (NEGATIVE) mg/dL Urine Ketones Negative Negative (NEGATIVE) mg/dL Urine Occult Blood Trace-intact H Trace-intact H (NEGATIVE) Urine Nitrite Positive H Negative (NEGATIVE) Urine Bilirubin Negative Negative (NEGATIVE) Urine Urobilinogen 0.2 0.2 (0.2-1.0) EU/dL Ur Leukocyte Esterase Small H Trace H (NEGATIVE) Urine RBC 0-5 10-20 H (0-5) Urine WBC 10-20 H 5-10 H (0-5) Ur Epithelial Cells Moderate Moderate Amorphous Sediment Not seen Not seen Urine Bacteria Many Moderate Urine Mucus Not seen Few Urine HCG, Qual Negative Urine Opiates Screen (NEGATIVE) Ur Oxycodone Screen (NEGATIVE) Urine Methadone Screen (NEGATIVE) Ur Propoxyphene Screen (NEGATIVE) Ur Barbiturates Screen (NEGATIVE) Ur Tricyclics Screen (NEGATIVE) Ur Phencyclidine Scrn (NEGATIVE) Ur Amphetamine Screen (NEGATIVE) U Methamphetamines Scrn (NEGATIVE) Urine MDMA Screen (NEGATIVE) U Benzodiazepines Scrn (NEGATIVE) U Cocaine Metab Screen (NEGATIVE) U Marijuana (THC) Screen (NEGATIVE) Re-Assessment/Re-Exam: UA was obtained for urinalysis, urine drug screen and urine . CBC, CMP and TSH were obtained as well. CBC is normal, CMP is relatively normal but TSH is markedly elevated. Urine is negative. UA shows polymicrobial bacteria and white cells, this will be followed by a mini cath UA for accuracy. We have had several calls from different family members while she has been here concern for her safety. Unfortunately I cannot get a crisis eval today as she is a regular user of methamphetamine and has used recently with positive methamphetamine in her urine. I offered her detox at [facility] where she can reestablish her Synthroid medication, then she told me she has been taking it for the last couple of days. There are inconsistencies in her history that are very concerning, I am not sure what is truthful and what is not. I did talk to the hospitalist service about admitting her for treatment of UTI, uncontrolled hypothyroidism and severe depression to hopefully get a psychiatric eval in the next day or 2 when she has a chance to clear from the methamphetamine but it was felt that was not necessary. Hopefully we can get a family member to come and take responsibility for her or convince her to go to detox. Patient refused to allow us a mini cath UA able to go have a cigarette. She reiterated strongly that she was not suicidal and would not go to detox. A mini cath UA was obtained and looked markedly better, nitrite negative and mild bacteria. Few leukocytes, a culture will be done in this urine but no treatment necessary at this time as she is asymptomatic. The patient was discharged and will avoid methamphetamine use and make sure she takes her Synthroid daily. Her plan is to walk over to [facility] where her father is, picked up by her brother which she can start her journey to her aunt' s place. She once again reiterated that she was not suicidal, she was going to avoid methamphetamine and take her medications as prescribed. Departure - Departure Time of Disposition: 14:37 Disposition: Home, Self-Care 01 Clinical Impression: Depressive disorder, Methamphetamine abuse Hypothyroidism Qualifiers: Hypothyroidism type: unspecified Qualified Code(s): E03.9 - Hypothyroidism, unspecified - Discharge Information Instructions: Hypothyroidism Referrals: PCP,None [Primary Care Provider] - Forms: ED Department Discharge Care Plan Goals: It is very important that you take your Synthroid daily as directed, and avoid further methamphetamine abuse. Recheck in 2 to 3 days if not improving satisfactorily Sepsis Event Note - Evaluation Sepsis Screening Result: No Definite Risk - Focused Exam Vital Signs: Vital Signs Temp Pulse Resp BP Pulse Ox 06/12/19 09:45 96.8 F 93 16 123/91 H 100 Date Exam was Performed: 06/12/19 Time Exam was Performed: 14:45 - My Orders Last 24 Hours: My Active Orders 06/12/19 11:48 CULTURE URINE [RM] Stat - Assessment/Plan Last 24 Hours: My Active Orders 06/12/19 11:48 CULTURE URINE [RM] Stat
== END 2019-06-12 14:37 | disposition home or self-care (01) ==
LOC: JP.ED 09:34
DX: F32.9 Major depressive disorder, single episode, unspecified (principal); F15.10 Other stimulant abuse, uncomplicated; E03.9 Hypothyroidism, unspecified; J45.909 Unspecified asthma, uncomplicated; F17.210 Nicotine dependence, cigarettes, uncomplicated; F41.9 Anxiety disorder, unspecified; Z91.048 Other nonmedicinal substance allergy status; Z91.040 Latex allergy status; Z88.2 Allergy status to sulfonamides; Z88.8 Allergy status to other drugs, medicaments and biological substances; Z79.899 Other long term (current) drug therapy; Z79.890 Hormone replacement therapy
CPT/HCPCS: 36415; 80053; 80305-QW; 81001; 81025; 84443; 85025; 87086; 87088; 87186; 99282; 99284

== ENCOUNTER 2019-10-23 20:36 | Emergency (ER) | payer MEDICAID ==
[2019-10-23 20:46] VITALS: BP 130/95; PULSE 84
--- NOTE | 2019-10-23 21:26 | EDM.PDOCBH ---
ED HPI GENERAL MEDICAL PROBLEM - General Chief Complaint: Drug or Alcohol Abuse Stated Complaint: MEDICAL [facility]IA [facility] Time Seen by Provider: 10/23/19 20:40 Source of Information: Reports: Patient - History of Present Illness INITIAL COMMENTS - FREE TEXT/NARRATIVE: 33 yr old presents worried about her thyroid. She has a history of thyroid dz and hasn't taken meds for a while. She is anxious about Covid and getting sick. She is worried about Lyme's dz but denies fever or rash. She regular use of meth. She denies other psych problems including self harm and suicidal thoughts. chest pain Pain Score (Numeric/FACES): 2 - Related Data Allergies Allergy/AdvReac Type Severity Reaction Status Date / Time adhesive tape Allergy Rash Verified 06/12/19 09:51 latex Allergy Hives Verified 06/12/19 09:51 Sulfa (Sulfonamide Allergy Hives Verified 06/12/19 09:51 Antibiotics) amitriptyline AdvReac Disorientat Verified 06/12/19 09:51 ion buprenorphine AdvReac Nausea Verified 06/12/19 09:51 citric acid AdvReac Acid Reflux Verified 06/12/19 09:51 ketorolac [From Toradol] AdvReac Nausea Verified 06/12/19 09:51 topiramate [From Topamax] AdvReac Nausea Verified 06/12/19 09:51 Home Meds: Home Meds Levothyroxine 100 mcg PO DAILY 02/05/13 [History] Albuterol Sulfate [Proair Hfa] 1 - 2 puff IH Q4HR PRN 03/31/15 [History] ALPRAZolam [Alprazolam] 1 mg PO BEDTIME 12/28/17 [History] lamoTRIgine [Lamotrigine] 150 mg PO BEDTIME 12/28/17 [History] Past Medical History HEENT History: Reports: Impaired Vision Cardiovascular History: Reports: Other (See Below) Other Cardiovascular History: heart palpitation Respiratory History: Reports: Asthma Other Respiratory History: EXERCISE INDUCED ASTHMA Gastrointestinal History: Reports: Gastritis, GERD Genitourinary History: Reports: Other (See Below) Other Genitourinary History: cervical dysplagia LINEN FOLDER History: Reports: Other LINEN FOLDER History: cervical dysplagia Musculoskeletal History: Reports: Back Pain, Chronic, Fracture, Fibromyalgia, Other (See Below) Other Musculoskeletal History: EHLER'S DANLOS SYNDROME Neurological History: Reports: Concussion, Migraines Psychiatric History: Reports: Anxiety, Bipolar, Depression, Mood Swings, Psych Hospitalization(s), Suicide Attempt, Suicidal Ideation, Other (See Below) Other Psychiatric History: borderline personality disorder[place] [facility] [place] [facility] mental health place. Endocrine/Metabolic History: Reports: Hypothyroidism Hematologic History: Reports: Anemia, B12 Deficiency, Blood Transfusion(s), Iron Deficiency Immunologic History: Reports: None Oncologic (Cancer) History: Reports: None Dermatologic History: Reports: None - Infectious Disease History Infectious Disease History: Reports: Chicken Pox, Influenza - Past Surgical History Head Surgeries/Procedures: Reports: None GI Surgical History: Reports: Appendectomy, Cholecystectomy Female Surgical History: Reports: Tubal Ligation, Other (See Below) Other Female Surgeries/Procedures: cervical biopsy = dysplasia Social & Family History - Family History Family Medical History: Noncontributory - Tobacco Use Smoking Status *Q: Current Every Day Smoker Years of Tobacco use: 4 Packs/Tins Daily: 0.5 - Caffeine Use Caffeine Use: Reports: Coffee, Energy Drinks, Soda Other Caffeine Use: one cup daily - Recreational Drug Use Recreational Drug Use: Yes Drug Use in Last 12 Months: Yes Recreational Drug Type: Reports: Methamphetamine Recreational Drug Use Frequency: Socially - Living Situation & Occupation Living situation: Reports: Occupation: Disabled (lives with and 3 children. 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 Denies: Chest Pain Endocrine: Reports: Fatigue GI/Abdominal: Reports: No Symptoms : Reports: No Symptoms Skin: Reports: No Symptoms Neurological: Reports: No Symptoms ED EXAM, BEHAVIORAL HEALTH - Physical Exam Exam: See Below Exam Limited By: No Limitations General Appearance: Alert, WD/WN, No Apparent Distress Ears: Normal External Exam Nose: Normal Inspection Throat/Mouth: Normal Inspection Head: Atraumatic Respiratory/Chest: No Respiratory Distress, Lungs Clear Cardiovascular: Normal Peripheral Pulses, Regular Rate, Rhythm Neurological: Alert, Normal Cognition, Normal Gait, Oriented x 3. No: Disoriented to Time, Inattentive Psychiatric: Alert, Normal Affect, Normal Cognition, Normal Mood, Restless. No : Agitated, Uncooperative, Suicidal Plan, Suicidal Thoughts, Auditory Hallucinations, Pressured Speech, Threatening Behavior Skin Exam: Warm, Dry, Intact, No rash COURSE, BEHAVIORAL HEALTH COMP - Course Vital Signs: Last Vital Signs Temp 36.5 C 10/23/19 20:46 Pulse 84 10/23/19 20:46 Resp 22 H 10/23/19 20:46 BP 130/95 H 10/23/19 20:46 Pulse Ox 100 10/23/19 20:46 Orders, Labs, Meds: Active Orders 24 hr Category Date Time Status TSH ULTRASENSITIVE [CHEM] Stat Lab 10/23/19 21:20 Ordered Re-Assessment/Re-Exam: This patient is anxious and has a history of meth use. She is not suicidal or a threat to others. She is oriented and mentation is adequate to make decisions and take care of herself. Her exam is unremarkable and her emergency screening exam is normal. TSH is pending. She is discharged home to followup with her primary care provider. Departure - Departure Time of Disposition: 21:30 Disposition: Home, Self-Care 01 Condition: Good Clinical Impression: Anxiety - Discharge Information Additional Instructions: avoid street drugs. Follow up with your doctor. Return to the ER as needed. Sepsis Event Note (ED) - Evaluation Sepsis Screening Result: No Definite Risk - Focused Exam Vital Signs: Vital Signs Temp Pulse Resp BP Pulse Ox 10/23/19 20:46 36.5 C 84 22 H 130/95 H 100 10/23/19 20:41 36.5 C 84 22 H 130/95 H 100 - My Orders Last 24 Hours: My Active Orders 10/23/19 21:20 TSH ULTRASENSITIVE [CHEM] Stat - Assessment/Plan Last 24 Hours: My Active Orders 10/23/19 21:20 TSH ULTRASENSITIVE [CHEM] Stat
== END 2019-10-23 21:38 | disposition home or self-care (01) ==
LOC: JP.ED 20:36
DX: F41.9 Anxiety disorder, unspecified (principal); J45.909 Unspecified asthma, uncomplicated; E03.9 Hypothyroidism, unspecified; F31.9 Bipolar disorder, unspecified; F17.210 Nicotine dependence, cigarettes, uncomplicated; Z79.899 Other long term (current) drug therapy; Z88.8 Allergy status to other drugs, medicaments and biological substances; Z88.2 Allergy status to sulfonamides; Z91.040 Latex allergy status; Z91.048 Other nonmedicinal substance allergy status
CPT/HCPCS: 36415; 84443; 99283

== ENCOUNTER 2019-11-06 05:10 | Emergency (ER) | payer MEDICAID ==
[2019-11-06 05:20] VITALS: BP 117/86; PULSE 102
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
[2019-11-06] MEDS ORDERED: Nitrofurantoin Monohydrate/Macrocrystalline 100 MG Cap PO ONE (06:29)
== END 2019-11-06 07:02 | disposition home or self-care (01) ==
LOC: JP.ED 05:10
DX: T38.1X2A Poisoning by thyroid hormones and substitutes, intentional self-harm, initial encounter (principal); J45.909 Unspecified asthma, uncomplicated; N30.01 Acute cystitis with hematuria; F19.10 Other psychoactive substance abuse, uncomplicated; F17.210 Nicotine dependence, cigarettes, uncomplicated; E03.9 Hypothyroidism, unspecified; Z91.048 Other nonmedicinal substance allergy status; Z91.040 Latex allergy status; Z88.2 Allergy status to sulfonamides; Z91.018 Allergy to other foods; Z88.6 Allergy status to analgesic agent; Z88.8 Allergy status to other drugs, medicaments and biological substances; Z79.899 Other long term (current) drug therapy
CPT/HCPCS: 80305; 81001; 81025; 99284; A9270

== ENCOUNTER 2020-04-16 13:46 | Emergency (ER) | payer MEDICAID ==
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
[2020-04-16] MEDS ORDERED: Acetaminophen 325 MG Tab PO ONE (14:46)
[2020-04-16 16:08] VITALS: BP 104/72; PULSE 89
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
== END 2020-04-16 17:30 | disposition home or self-care (01) ==
LOC: JP.ED 13:46
DX: S40.022A Contusion of left upper arm, initial encounter (principal); S40.021A Contusion of right upper arm, initial encounter; S80.12XA Contusion of left lower leg, initial encounter; S80.11XA Contusion of right lower leg, initial encounter; S40.211A Abrasion of right shoulder, initial encounter; F15.10 Other stimulant abuse, uncomplicated; J45.909 Unspecified asthma, uncomplicated; E03.9 Hypothyroidism, unspecified; F17.210 Nicotine dependence, cigarettes, uncomplicated; Z79.899 Other long term (current) drug therapy; Z88.2 Allergy status to sulfonamides; Z91.048 Other nonmedicinal substance allergy status; Z91.040 Latex allergy status; Z88.8 Allergy status to other drugs, medicaments and biological substances; Z91.018 Allergy to other foods; Z88.6 Allergy status to analgesic agent
CPT/HCPCS: 70450; 72125; 73562-26-LT; 73562-LT; 99283; 99284-25; A9270-GY

== ENCOUNTER 2020-09-30 21:28 | Emergency (ER) | payer MEDICAID ==
[2020-09-30 22:04] VITALS: BP 123/90; PULSE 88
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
[2020-09-30] MEDS ORDERED: Ketorolac 30 MG/ML SDV IM ONE (23:45)
[2020-09-30] MEDS ORDERED: Methocarbamol 500 MG Tab PO ONE (23:45)
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
[2020-10-01] MEDS ORDERED: Acetaminophen 325 MG Tab PO ONE (08:18)
== END 2020-10-01 09:48 | disposition home or self-care (01) ==
LOC: JP.ED 21:28
DX: S06.0X0A Concussion without loss of consciousness, initial encounter (principal); S16.1XXA Strain of muscle, fascia and tendon at neck level, initial encounter; S46.819A Strain of other muscles, fascia and tendons at shoulder and upper arm level, unspecified arm, initial encounter; T74.11XA Adult physical abuse, confirmed, initial encounter; E03.9 Hypothyroidism, unspecified; Z91.040 Latex allergy status; Z88.2 Allergy status to sulfonamides; Z91.018 Allergy to other foods; Z91.048 Other nonmedicinal substance allergy status; Z72.0 Tobacco use; Z88.8 Allergy status to other drugs, medicaments and biological substances; Z79.899 Other long term (current) drug therapy; W17.81XA Fall down embankment (hill), initial encounter
CPT/HCPCS: 36415; 70450; 72125; 80053; 80305-QW; 80307; 81001; 85025; 96372; 99284-25; A9270-GY; J1885

== ENCOUNTER 2022-12-12 21:45 | Emergency (ER) | payer MEDICAID ==
[2022-12-12 21:59] VITALS: BP 126/80; PULSE 105
== END 2022-12-12 22:10 | disposition left against medical advice (07) ==
LOC: JP.ED 21:45
DX: Z53.21 Procedure and treatment not carried out due to patient leaving prior to being seen by health care provider (principal)

== ENCOUNTER 2023-01-30 22:29 | Emergency (ER) | payer MEDICAID ==
[2023-01-30 23:11] VITALS: BP 123/85; PULSE 96
[2023-01-30] MEDS ORDERED: Diphtheria,Pertussis(Acell),Tetanus Vaccine 0.5 ML Syringe IM ONE (23:21)
[2023-01-30] MEDS ORDERED: Lidocaine 1% 5 ML VIAL INJECT ONE (23:21)
[2023-01-31] MEDS ORDERED: Bacitracin Oint 1 GM U/D Packet TOP ONE (00:07)
== END 2023-01-31 00:31 | disposition home or self-care (01) ==
LOC: JP.ED 22:29
DX: S61.210A Laceration without foreign body of right index finger without damage to nail, initial encounter (principal); K21.9 Gastro-esophageal reflux disease without esophagitis; J45.909 Unspecified asthma, uncomplicated; F17.210 Nicotine dependence, cigarettes, uncomplicated; Z91.040 Latex allergy status; Z88.2 Allergy status to sulfonamides; Z88.8 Allergy status to other drugs, medicaments and biological substances; Z91.09 Other allergy status, other than to drugs and biological substances; W26.0XXA Contact with knife, initial encounter
CPT/HCPCS: 12001; 90471; 90715; 99282; 99282-25